=== PATIENT | female | born 1940 | race Caucasian/White ===

== ENCOUNTER 2017-01-15 17:14 | Inpatient (IN) | payer MEDICARE, BC ==
[2017-01-15] MEDS ORDERED: cefTRIAXone 1 GM in Sodium Chloride 0.9% 50 ML IV SCH (22:15)
--- NOTE | 2017-01-15 23:06 | EDM.PDOC ---
ED HPI GENERAL MEDICAL PROBLEM - General Chief Complaint: General Stated Complaint: FELL, FREQUENT URINATION Time Seen by Provider: 01/15/17 18:36 Source of Information: Reports: Patient, Family History Limitations: Reports: Physical impairment (It's difficult to follow this lady's oral history. The duration of her leg swelling is difficult to ascertain) - History of Present Illness INITIAL COMMENTS - FREE TEXT/NARRATIVE: This lady comes to the hospital with some vague symptoms related to possibly a UTI falling and weakness in her left leg. She said for a few days she's had some weakness in the left leg and has fallen because of it. 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 Sometimes her left foot seems numb. Before falling she had an episode of shaking. She doesn't think her blood sugar was low. She checked it and it was 205 prior to arrival. She doesn't think her foot was " asleep" but says it just didn't want to work right. She says it's numb but at the same time she has sensation in it. She said that her left leg has been swelling off and on for a few months. At another time she said the swelling has just come up within the past day or 2. She denies any pain in the left leg. She complains of voiding large amounts frequently. She denies any burning on urination. She denies any flank pain. left leg and foot Pain Score (Numeric/FACES): 0 - Related Data Allergies Allergy/AdvReac Type Severity Reaction Status Date / Time No Known Allergies Allergy Verified 01/15/17 17:45 Home Meds: Home Meds Aspirin 81 mg PO DAILY 08/21/15 [History] Insulin Glarg,Human.Rec.Analog [LantUS Solostar] 32 unit SQ DAILY 08/21/15 [ History] Lisinopril/Hydrochlorothiazide [Zestoretic 20-12.5 mg Tablet] 2 each PO DAILY [History] Metoprolol Succinate [Toprol XL] 200 mg PO DAILY 08/21/15 [History] Simvastatin [Zocor] 40 mg PO BEDTIME 08/21/15 [History] amLODIPine [Norvasc] 10 mg PO DAILY 08/21/15 [History] metFORMIN [Glucophage] 1,000 mg PO BIDMEALS 08/21/15 [History] Past Medical History Cardiovascular History: Reports: High cholesterol, Hypertension Gastrointestinal History: Reports: GERD Musculoskeletal History: Reports: Osteoarthritis, Other (see below) Other Musculoskeletal History: c/o of L leg and hip pain Endocrine/Metabolic History: Reports: Diabetes, type II - Past Surgical History Cardiovascular Surgical History: Reports: None GI Surgical History: Reports: Appendectomy Female Surgical History: Reports: Hysterectomy Musculoskeletal Surgical History: Reports: None Social & Family History - Tobacco Use Smoking Status *Q: Never Smoker Second Hand Smoke Exposure: No - Recreational Drug Use Recreational Drug Use: No ED ROS GENERAL - Review of Systems Review Of Systems: See Below Constitutional: Reports: no symptoms HEENT: Reports: No symptoms Respiratory: Reports: No Symptoms Cardiovascular: Reports: No symptoms Endocrine: Reports: polyuria GI/Abdominal: Reports: No symptoms : Reports: frequency Musculoskeletal: Reports: other (See HPI) Skin: Reports: no symptoms Neurological: Reports: Numbness, Tingling, Weakness Psychiatric: Reports: No symptoms Hematologic/Lymphatic: Reports: no symptoms Immunologic: Reports: no symptoms ED EXAM, GENERAL - Physical Exam Exam: See Below Exam Limited By: Other (The patient speaks in a very weak voice since little bit difficult to understand her) General Appearance: alert, mild distress, obese Eye Exam: bilateral eye: EOMI, PERRL Ears: normal external exam, normal TMs Nose: normal inspection Throat/Mouth: Normal inspection, Normal oropharynx (Well-hydrated) Head: atraumatic Neck: normal inspection, supple Respiratory/Chest: lungs clear Cardiovascular: regular rate, rhythm, no murmur, other (I was unable to palpate pedal pulses in either ankle probably due to obesity. Her foot is warm and has normal capillary refill.) Peripheral Pulses: 0: posterior tibial (L) (Probably secondary to obesity), posterior tibial (R), dorsalis pedis (L), dorsalis pedis (R), 2+: radial (L), radial (R) GI/Abdominal: soft, non tender Back Exam: normal inspection Extremities: other (There is visible swelling of the left lower extremity. From the knees down it's obvious [id number] it's more subtle. There is no erythema. The leg is nontender and there are no palpable cords.) Neurological: alert, oriented, CN II-XII intact, normal cognition, no motor/ sensory deficits. No: normal gait Psychiatric: normal affect Skin Exam: Warm, Dry Course - Vital Signs Last Recorded V/S: Last Vital Signs Temp 36.3 C 01/15/17 22:24 Pulse 71 01/15/17 22:24 Resp 20 01/15/17 22:24 BP 151/83 H 01/15/17 22:24 Pulse Ox 92 L 01/15/17 22:24 - Orders/Labs/Meds Orders: Active Orders 24 hr Category Date Time Status EKG Documentation Completion [RC] ASDIRECTED Care 01/15/17 18:50 Active Head wo Cont [CT] Stat Exams 01/15/17 20:39 Taken VL Duplex Lwr Ext Veins Ltd Lt [US] Stat Exams 01/15/17 20:39 Ordered cefTRIAXone [Rocephin] 1 gm Med 01/15/17 22:15 Active Sodium Chloride 0.9% [Normal Saline] 50 ml IV Q24H EKG 12 Lead [EK] Urgent Ther 01/15/17 18:50 Ordered Medication Orders Ceftriaxone Sodium 1 gm/ (Sodium Chloride) 50 mls @ 100 mls/hr IV Q24H [facility] Last Admin: 01/15/17 22:26 Dose: 100 mls/hr Labs: Laboratory Tests 01/15/17 01/15/17 01/15/17 Range/Units 19:04 19:04 19:49 WBC 9.1 (4.5-11.0) K/uL RBC 4.81 (3.30-5.50) M/uL Hgb 13.5 (12.0-15.0) g/dL Hct 40.6 (36.0-48.0) % MCV 84 (80-98) fL MCH 28 (27-31) pg MCHC 33 (32-36) % Plt Count 350 (150-400) K/uL Neut % (Auto) 66 (36-66) % Lymph % (Auto) 18 L (24-44) % Marion % (Auto) 13 H (2-6) % Eos % (Auto) 4 (2-4) % Baso % (Auto) 0 (0-1) % Sodium 137 L (140-148) mmol/L Potassium 3.1 L (3.6-5.2) mmol/L Chloride 96 L (100-108) mmol/L Carbon Dioxide 31 (21-32) mmol/L Anion Gap 13.1 (5.0-14.0) mmol/L BUN 13 (7-18) mg/dL Creatinine 0.9 (0.6-1.0) mg/dL Est Cr Clr Drug Dosing 43.37 mL/min Estimated GFR (MDRD) > 60 (>60) Glucose 161 H (74-106) mg/dL Lactic Acid (0.4-2.0) mmol/L Calcium 9.5 (8.5-10.1) mg/dL Total Bilirubin 0.4 (0.2-1.0) mg/dL AST 22 (15-37) U/L ALT 20 (12-78) U/L Alkaline Phosphatase 67 (46-116) U/L Troponin I < 0.017 (0.000-0.056) ng/mL Total Protein 7.7 (6.4-8.2) g/dL Albumin 3.7 (3.4-5.0) g/dL Globulin 4.0 H (2.3-3.5) g/dL Albumin/Globulin Ratio 0.9 L (1.2-2.2) Urine Color Yellow Urine Appearance Cloudy Urine pH 8.0 (4.5-8.0) Ur Specific Brewster 1.015 (1.008-1.030) Urine Protein Negative (NEGATIVE) mg/dL Urine Glucose (UA) Normal (NEGATIVE) mg/dL Urine Ketones Negative (NEGATIVE) mg/dL Urine Occult Blood Negative (NEGATIVE) Urine Nitrite Negative (NEGATIVE) Urine Bilirubin Negative (NEGATIVE) Urine Urobilinogen Normal (NORMAL) mg/dL Ur Leukocyte Esterase Large (NEGATIVE) Urine RBC Not seen (0-5) Urine WBC 50-75 H (0-5) Ur Epithelial Cells Few Amorphous Sediment Not seen Urine Bacteria Moderate Urine Mucus Not seen 01/15/17 Range/Units 21:37 WBC (4.5-11.0) K/uL RBC (3.30-5.50) M/uL Hgb (12.0-15.0) g/dL Hct (36.0-48.0) % MCV (80-98) fL MCH (27-31) pg MCHC (32-36) % Plt Count (150-400) K/uL Neut % (Auto) (36-66) % Lymph % (Auto) (24-44) % Marion % (Auto) (2-6) % Eos % (Auto) (2-4) % Baso % (Auto) (0-1) % Sodium (140-148) mmol/L Potassium (3.6-5.2) mmol/L Chloride (100-108) mmol/L Carbon Dioxide (21-32) mmol/L Anion Gap (5.0-14.0) mmol/L BUN (7-18) mg/dL Creatinine (0.6-1.0) mg/dL Est Cr Clr Drug Dosing mL/min Estimated GFR (MDRD) (>60) Glucose (74-106) mg/dL Lactic Acid 2.0 (0.4-2.0) mmol/L Calcium (8.5-10.1) mg/dL Total Bilirubin (0.2-1.0) mg/dL AST (15-37) U/L ALT (12-78) U/L Alkaline Phosphatase (46-116) U/L Troponin I (0.000-0.056) ng/mL Total Protein (6.4-8.2) g/dL Albumin (3.4-5.0) g/dL Globulin (2.3-3.5) g/dL Albumin/Globulin Ratio (1.2-2.2) Urine Color Urine Appearance Urine pH (4.5-8.0) Ur Specific Brewster (1.008-1.030) Urine Protein (NEGATIVE) mg/dL Urine Glucose (UA) (NEGATIVE) mg/dL Urine Ketones (NEGATIVE) mg/dL Urine Occult Blood (NEGATIVE) Urine Nitrite (NEGATIVE) Urine Bilirubin (NEGATIVE) Urine Urobilinogen (NORMAL) mg/dL Ur Leukocyte Esterase (NEGATIVE) Urine RBC (0-5) Urine WBC (0-5) Ur Epithelial Cells Amorphous Sediment Urine Bacteria Urine Mucus Meds: Medications Generic Name Dose Route Start Last Admin Trade Name Freq PRN Reason Stop Dose Admin Ceftriaxone Sodium 1 gm/ 50 mls @ 100 mls/hr 01/15/17 22:15 01/15/17 22:26 Sodium Chloride IV 100 mls/hr Q24H PRASANNA Administration - Re-Assessments/Exams Free Text/Narrative Re-Assessment/Exam: 01/15/17 23:11 The nurses help this lady get up to go to the bathroom. They said that she seemed very weak and was unable to bear weight with the left leg. . 01/15/17 23:[address] showed no acute intracranial abnormalities. At this point there is no obvious etiology for the lower leg weakness. She does appear to have a urinary tract infection. Her weakness necessitates hospitalization. I spoke with Katrina Bryson of the hospitalist service and she has accepted the admission Departure - Departure Time of Disposition: 23:13 Disposition: Admitted As Inpatient 68 Clinical Impression: Weakness of left leg - My Orders Last 24 Hours: My Active Orders 01/15/17 18:50 EKG Documentation Completion [RC] ASDIRECTED EKG 12 Lead [EK] Urgent 01/15/17 20:39 Head wo Cont [CT] Stat VL Duplex Lwr Ext Veins Ltd Lt [US] Stat - Assessment/Plan Last 24 Hours: My Active Orders 01/15/17 18:50 EKG Documentation Completion [RC] ASDIRECTED EKG 12 Lead [EK] Urgent 01/15/17 20:39 Head wo Cont [CT] Stat VL Duplex Lwr Ext Veins Ltd Lt [US] Stat
[2017-01-15] MEDS ORDERED: Albuterol 0.083% 2.5 MG/3 ML Neb Soln NEB PRN (23:08)
[2017-01-15] MEDS ORDERED: Sodium Chloride 0.9% 10 ML Syringe FLUSH PRN (23:08)
[2017-01-15] MEDS ORDERED: LORazepam 2 MG/ML MDV IV PRN (23:08)
[2017-01-15] MEDS ORDERED: Ibuprofen 600 MG Tab PO PRN (23:08)
[2017-01-15] MEDS ORDERED: Ondansetron 4 MG Tab.DIS PO PRN (23:08)
[2017-01-15] MEDS ORDERED: oxyCODONE 5 MG Tab PO PRN (23:08)
[2017-01-15] MEDS ORDERED: Ondansetron 4 MG/2 ML SDV IV PRN (23:08)
[2017-01-15] MEDS ORDERED: Temazepam 15 MG Cap PO PRN (23:08)
[2017-01-15] MEDS ORDERED: Bisacodyl 5 MG Tab PO PRN (23:08)
[2017-01-15] MEDS ORDERED: Morphine 2 MG/ML Syringe IVPUSH PRN (23:08)
[2017-01-15] MEDS: Albuterol/Ipratropium 3.0-0.5 MG/3 ML Neb Soln NEB SCH (23:44)
[2017-01-16] MEDS: Docusate Sodium 100 MG Cap PO PRN (00:01)
[2017-01-16] MEDS: Albuterol/Ipratropium 3.0-0.5 MG/3 ML Neb Soln NEB SCH ×4 (07:19→20:07)
--- NOTE | 2017-01-16 07:32 | PCM.HP ---
H&P History of Present Illness - General Date of Service: 01/15/17 Admit Problem/Dx: Admission Diagnosis/Problem Admission Diagnosis/Problem Acute urinary tract infection Source of Information: Patient, Family ( and Daughter) History Limitations: Reports: No limitations - History of Present Illness Initial Comments - Free Text/Narative: tions: Reports: Physical impairment (It's difficult to follow this lady's oral history. The duration of her leg swelling is difficult to ascertain) - History of Present Illness INITIAL COMMENTS - FREE TEXT/NARRATIVE: This lady comes to the hospital with some vague symptoms related to possibly a UTI falling and weakness in her left leg. She said for a few days she's had some weakness in the left leg and has fallen because of it. It seems like sometimes she can't slate picker her left foot. Sometimes her left foot seems numb. Before falling she had an episode of shaking. She doesn't think her blood sugar was low. She checked it and it was 205 prior to arrival. She doesn't think her foot was " asleep" but says it just didn't want to work right. She says it's numb but at the same time she has sensation in it. She said that her left leg has been swelling off and on for a few months. At another time she said the swelling has just come up within the past day or 2. She denies any pain in the left leg. She complains of voiding large amounts frequently. She denies any burning on urination. She denies any flank pain. left leg and foot. The nurses help this lady get up to go to the bathroom. They said that she seemed very weak and was unable to bear weight with the left leg. . 01/15/17 23:[address] showed no acute intracranial abnormalities. At this point there is no obvious etiology for the lower leg weakness. She does appear to have a urinary tract infection. Her weakness necessitates hospitalization. I spoke with Katrina Bryson of the hospitalist service and she has accepted the admission. Onset of Symptoms: Reports: gradual Duration of Symptoms: Reports: Day(s): (two), Chronic (leg symptoms for >one month) Location: Reports: generalized Improves with: Reports: None Worsens with: Reports: None Context: Reports: other (fall x 2 at home today) Associated Symptoms: Reports: weakness left leg and foot Pain Score (Numeric/FACES): 0 - Related Data Allergies/Adverse Reactions: Allergies Allergy/AdvReac Type Severity Reaction Status Date / Time Gold Allergy Rash Uncoded 01/16/17 02:17 Home Medications: Home Meds Aspirin 81 mg PO DAILY 08/21/15 [History] Insulin Glarg,Human.Rec.Analog [LantUS Solostar] 32 unit SQ DAILY 08/21/15 [ History] Lisinopril/Hydrochlorothiazide [Zestoretic 20-12.5 mg Tablet] 2 each PO DAILY [History] Metoprolol Succinate [Toprol XL] 200 mg PO DAILY 08/21/15 [History] Simvastatin [Zocor] 40 mg PO BEDTIME 08/21/15 [History] amLODIPine [Norvasc] 10 mg PO DAILY 08/21/15 [History] metFORMIN [Glucophage] 1,000 mg PO BIDMEALS 08/21/15 [History] Past Medical History HEENT History: Reports: Impaired vision, Other (see below) Other HEENT History: had a repaired hole in the eardrum by Dr. Gordon in the last year Cardiovascular History: Reports: High cholesterol, Hypertension Gastrointestinal History: Reports: GERD Musculoskeletal History: Reports: Osteoarthritis, Other (see below) Other Musculoskeletal History: c/o of L leg and hip pain Endocrine/Metabolic History: Reports: Diabetes, type II - Past Surgical History Cardiovascular Surgical History: Reports: None GI Surgical History: Reports: Appendectomy Female Surgical History: Reports: Hysterectomy Musculoskeletal Surgical History: Reports: None Social & Family History - Family History Family Medical History: Noncontributory - Tobacco Use Smoking Status *Q: Never Smoker Second Hand Smoke Exposure: No - Recreational Drug Use Recreational Drug Use: No - Living Situation & Occupation Living situation: Reports: Occupation: other (lives with of 56 years in [place], [place]. They have 3 children.) H&P Review of Systems - Review of Systems: Review Of Systems: See Below General: Reports: weakness, fatigue HEENT: Reports: no symptoms Pulmonary: Reports: No Symptoms Cardiovascular: Reports: no symptoms Gastrointestinal: Reports: No symptoms Genitourinary: Reports: dysuria, frequency, burning, urgency, incontinence Musculoskeletal: Reports: leg pain (left leg), muscle pain (left leg) Skin: Reports: no symptoms Psychiatric: Reports: no symptoms Neurological: Reports: No Symptoms Hematologic/Lymphatic: Reports: no symptoms Immunologic: Reports: no symptoms Exam - Exam Exam: See Below - Vital Signs Vital Signs: Last Vital Signs Temp 37.4 C 01/16/17 03:00 Pulse 60 01/16/17 07:21 Resp 14 01/16/17 03:00 BP 138/75 01/16/17 03:00 Pulse Ox 96 01/16/17 07:21 Weight: 80.286 kg - Exam General: alert, oriented, cooperative HEENT: PERRLA, Conjunctiva clear, Hearing intact, Mucosa moist & pink, Nares patent, Normal nasal septum, Posterior pharynx clear, Pupils equal, Pupils reactive Neck: supple, trachea midline, 2 Lungs: Clear to auscultation, Normal respiratory effort Cardiovascular: regular rate, regular rhythm Abdomen: normal bowel sounds, soft (Female) Exam: Deferred Rectal (Female) Exam: Deferred Back Exam: normal inspection, full range of motion, NT Extremities: 3, normal inspection, 10 Skin: warm, dry, intact Neurological: cranial nerves intact, other (left hand and legs with mild weakness ) Neuro Extensive - Mental Status: alert, oriented x3, normal mood/affect, normal cognition Neuro Extensive - Motor, Sensory, Reflexes: motor/sensory deficits Psychiatric: alert, normal affect, normal mood - Patient Data Lab Results last 24 hrs: Laboratory Results - last 24 hr 01/16/17 01/16/17 Range/Units 05:42 05:42 WBC 9.4 (4.5-11.0) K/uL RBC 4.58 (3.30-5.50) M/uL Hgb 13.0 (12.0-15.0) g/dL Hct 39.0 (36.0-48.0) % MCV 85 (80-98) fL MCH 28 (27-31) pg MCHC 33 (32-36) % Plt Count 319 (150-400) K/uL Neut % (Auto) 70 H (36-66) % Lymph % (Auto) 15 L (24-44) % [place] % (Auto) 11 H (2-6) % Eos % (Auto) 4 (2-4) % Baso % (Auto) 0 (0-1) % Sodium 139 L (140-148) mmol/L Potassium 3.0 L (3.6-5.2) mmol/L Chloride 99 L (100-108) mmol/L Carbon Dioxide 30 (21-32) mmol/L Anion Gap 13.0 (5.0-14.0) mmol/L BUN 12 (7-18) mg/dL Creatinine 0.9 (0.6-1.0) mg/dL Est Cr Clr Drug Dosing 43.37 mL/min Estimated GFR (MDRD) > 60 (>60) Glucose 145 H (74-106) mg/dL Calcium 8.9 (8.5-10.1) mg/dL Result Diagrams: 01/16/17 05:42 01/16/17 05:42 *Q Meaningful Use (ADM) - VTE *Q VTE Criteria *Q: - Stroke *Q Stroke Criteria *Q: - AMI *Q AMI Criteria *Q: - Problem List (1) Weakness SNOMED Code(s): 09239496 ICD Code: R53.1 - WEAKNESS Status: Acute Priority: High Current Visit: Yes (2) Urinary tract infection SNOMED Code(s): 56832773 ICD Code: N39.0 - URINARY TRACT INFECTION, SITE NOT SPECIFIED Status: Acute Priority: High Current Visit: Yes Qualifiers: Urinary tract infection type: site unspecified Hematuria presence: without hematuria Qualified Code(s): N39.0 - Urinary tract infection, site not specified (3) Diabetes mellitus type 2, insulin dependent SNOMED Code(s): 057813978 ICD Code: E11.9 - TYPE 2 DIABETES MELLITUS WITHOUT COMPLICATIONS; 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 Status: Acute Priority: High Current Visit: Yes Problem List Initiated/Reviewed/Updated: Yes Orders Last 24hrs: Active Orders 24 hr Category Date Time Status Patient Status [ADT] Routine ADT 01/15/17 23:08 Active Diabetes Education [RC] Click to Edit Care 01/15/17 23:08 Active Intake and Output [RC] QSHIFT Care 01/15/17 23:08 Active Notify Provider [RC] PRN Care 01/15/17 23:08 Active Oxygen Therapy [RC] PRN Care 01/15/17 23:08 Active RT Aerosol Therapy [RC] ASDIRECTED Care 01/15/17 23:08 Active Up With Assistance [RC] ASDIRECTED Care 01/15/17 23:08 Active Vital Signs [RC] Q4H Care 01/15/17 23:08 Active Consult to Physical Therapy [PT Evaluation and Cons 01/16/17 03:16 Active Treatment] [CONS] Routine OT Evaluation and Treatment [CONS] Routine Cons 01/15/17 23:08 Active PT Evaluation and Treatment [CONS] Routine Cons 01/15/17 23:08 Active Regular Diet [DIET] Diet 01/15/17 Breakfast Active GLUCOSE POC LAB TO COLLECT [POC] QIDACANDBED Lab 01/16/17 07:30 Ordered GLUCOSE POC LAB TO COLLECT [POC] QIDACANDBED Lab 01/16/17 11:30 Ordered GLUCOSE POC LAB TO COLLECT [POC] QIDACANDBED Lab 01/16/17 16:30 Ordered GLUCOSE POC LAB TO COLLECT [POC] QIDACANDBED Lab 01/16/17 21:00 Ordered Acetaminophen [Tylenol] Med 01/15/17 23:08 Active 650 mg PO Q4H PRN Albuterol [Proventil Neb Soln] Med 01/15/17 23:08 Active 2.5 mg NEB Q4H PRN Albuterol/Ipratropium [DuoNeb 3.0-0.5 MG/3 ML] Med 01/15/17 23:08 Active 3 ml NEB QIDRT Aspirin Med 01/16/17 09:00 Active 81 mg PO DAILY Bisacodyl [Dulcolax] Med 01/15/17 23:08 Active 5 mg PO DAILY PRN Docusate Sodium [Colace] Med 01/15/17 23:08 Active 100 mg PO BID PRN Hydrochlorothiazide Med 01/16/17 09:00 Active 25 mg PO DAILY Ibuprofen [Motrin] Med 01/15/17 23:08 Active 600 mg PO Q6H PRN Insulin Aspart [NovoLOG] Med 01/15/17 23:08 Active See Protocol SUBCUT ASDIRECTED Insulin Detemir [Levemir] Med 01/16/17 09:00 Active 32 unit SUBCUT DAILY LORazepam [Ativan] Med 01/15/17 23:08 Active 1 mg IV Q6H PRN Lisinopril [Prinivil] Med 01/16/17 09:00 Active 40 mg PO DAILY Metoprolol Succinate [Toprol XL] Med 01/16/17 09:00 Active 200 mg PO DAILY Morphine Med 01/15/17 23:08 Active 2 mg IVPUSH Q2H PRN Ondansetron [Zofran ODT] Med 01/15/17 23:08 Active 4 mg PO Q6H PRN Ondansetron [Zofran] Med 01/15/17 23:08 Active 4 mg IV Q4H PRN Pantoprazole [ProTONIX] Med 01/16/17 09:00 Active 40 mg PO DAILY Simvastatin [Zocor] Med 01/16/17 21:00 Active 40 mg PO BEDTIME Sodium Chloride 0.9% [Saline Flush] Med 01/15/17 23:08 Active 10 ml FLUSH ASDIRECTED PRN Temazepam [Restoril] Med 01/15/17 23:08 Active 15 mg PO BEDTIME PRN amLODIPine [Norvasc] Med 01/16/17 09:00 Active 10 mg PO DAILY metFORMIN [Glucophage] Med 01/16/17 08:00 Active 1,000 mg PO BIDMEALS oxyCODONE Med 01/15/17 23:08 Active 5 mg PO Q4H PRN Saline Lock Insert [OM.PC] Routine Oth 01/15/17 23:08 Ordered Sequential Compression Device [OM.PC] Per Unit Routine Oth 01/15/17 23:08 Ordered Resuscitation Status Routine Resus Stat 01/15/17 22:28 Ordered Medication Orders Acetaminophen (Tylenol) 650 mg PO Q4H PRN PRN Reason: Pain (Mild 1-3)/fever Albuterol (Proventil Neb Soln) 2.5 mg NEB Q4H PRN PRN Reason: Shortness Of Breath/wheezing Albuterol/Ipratropium (Duoneb 3.0-0.5 Mg/3 Ml) 3 ml NEB QIDRT PRASANNA Last Admin: 01/16/17 07:19 Dose: 3 ml Admin: 01/15/17 23:44 Dose: Not Given Amlodipine Besylate (Norvasc) 10 mg PO DAILY [facility] Aspirin (Aspirin) 81 mg PO DAILY [facility] Bisacodyl (Dulcolax) 5 mg PO DAILY PRN PRN Reason: Constipation Docusate Sodium (Colace) 100 mg PO BID PRN PRN Reason: Constipation Last Admin: 01/16/17 00:01 Dose: 100 mg Hydrochlorothiazide (Hydrochlorothiazide) 25 mg PO DAILY [facility] Ceftriaxone Sodium 1 gm/ (Sodium Chloride) 50 mls @ 100 mls/hr IV Q24H [facility] Last Admin: 01/15/17 22:26 Dose: 100 mls/hr Ibuprofen (Motrin) 600 mg PO Q6H PRN PRN Reason: Pain/Fever Insulin Aspart (Novolog) 0 unit SUBCUT ASDIRECTED PRASANNA PRN Reason: Protocol Insulin Detemir (Levemir) 32 unit SUBCUT DAILY [facility] Lisinopril (Prinivil) 40 mg PO DAILY [facility] Lorazepam (Ativan) 1 mg IV Q6H PRN PRN Reason: Nausea/Vomiting Metformin HCl (Glucophage) 1,000 mg PO BIDMEALS [facility] Metoprolol Succinate (Toprol Xl) 200 mg PO DAILY [facility] Morphine Sulfate (Morphine) 2 mg IVPUSH Q2H PRN PRN Reason: Pain (severe 7-10) Ondansetron HCl (Zofran Odt) 4 mg PO Q6H PRN PRN Reason: Nausea able to take PO Ondansetron HCl (Zofran) 4 mg IV Q4H PRN PRN Reason: Nausea/Vomiting Oxycodone HCl (Oxycodone) 5 mg PO Q4H PRN PRN Reason: Pain (moderate 4-6) Pantoprazole Sodium (Protonix) 40 mg PO DAILY [facility] Simvastatin (Zocor) 40 mg PO BEDTIME [facility] Sodium Chloride (Saline Flush) 10 ml FLUSH ASDIRECTED PRN PRN Reason: Keep Vein Open Temazepam (Restoril) 15 mg PO BEDTIME PRN PRN Reason: Sleep Assessment/Plan Comment:: ASSESSMENT AND PLAN: History of Present Illness INITIAL COMMENTS - FREE TEXT/NARRATIVE: This lady comes to the hospital with some vague symptoms related to possibly a UTI falling and weakness in her left leg. She said for a few days she's had some weakness in the left leg and has fallen because of it. It seems like sometimes she can't slate picker her left foot. Sometimes her left foot seems numb. Before falling she had an episode of shaking. She doesn't think her blood sugar was low. She checked it and it was 205 prior to arrival. She doesn't think her foot was " asleep" but says it just didn't want to work right. She says it's numb but at the same time she has sensation in it. She said that her left leg has been swelling off and on for a few months. At another time she said the swelling has just come up within the past day or 2. She denies any pain in the left leg. She complains of voiding large amounts frequently. She denies any burning on urination. She denies any flank pain. The nurses help this lady get up to go to the bathroom. They said that she seemed very weak and was unable to bear weight with the left leg. A head CT showed no acute intracranial abnormalities. At this point there is no obvious etiology for the lower leg weakness. She does appear to have a urinary tract infection. Her weakness necessitates hospitalization. I spoke with Katrina Bryson of the hospitalist service and she has accepted the admission URINARY TRACT INFECTION -Admit to [address] [place] [address] for further monitoring -Telemetry -Advise to notify nurses of any chest pain or other symptoms -And a.m. labs: CBC, BMP -Rocephin 1 gram IV Weakness -referral to Physical Therapy for assessment -referral to Occupational Therapy for assessment and discharge planning. -monitor left leg and left arm for any changes. Diabetes type 2 -levemir insulin 32 units subcut daily -insulin Novolog as directed low dose sliding scale coverage -glucose check before meals and at bedtime Maintenance issues -Orders home meds: -Nutrition: Regular diet -Larson catheter not indicated at this time -DVT: scd -GI ; Protonix po 40mg daily CODE STATUS: Full Admission status: Admit to [address] [place] [address] Admission justification. This patient will be admitted for inpatient services and is medically appropriate meeting medical necessity for inpatient admission as outlined in my documentation. I reasonably expect the patient will require inpatient services that span. Time over 2 midnights. I reasonably expect this patient to be discharged or transferred within 96 hours after admission to the critical access hospital. Disposition; home with Primary care provider: Dr. Tavarez
[2017-01-16] MEDS: Insulin Aspart 100 Units/ML 3 ML Pen SUBCUT SCH ×4 (07:58→22:13)
[2017-01-16] MEDS: Sodium Chloride 0.9% 1,000 ML IV SCH ×2 (07:59→18:15)
--- NOTE | 2017-01-16 08:00 | PCM.SN ---
- Free Text/Narrative Note: CHART REVIEW am labs; potassium 3.0, sodium 139, chloride 99 a; hypokalemia p; start IV fluids, Normal Saline at 100ml/hr, Potassium IV 20meq, add Mag++ to am labs continue with close monitoring.
[2017-01-16] MEDS: amLODIPine 10 MG Tab PO SCH (08:05)
[2017-01-16] MEDS: metFORMIN 500 MG Tab PO SCH ×2 (08:06→16:45)
[2017-01-16] MEDS: Pantoprazole 40 MG Tab.CR PO SCH (08:07)
[2017-01-16] MEDS: Lisinopril 20 MG Tab PO SCH (08:07)
[2017-01-16] MEDS: Hydrochlorothiazide 25 MG Tab PO SCH (08:07)
[2017-01-16] MEDS: Insulin Detemir 100 Units/ML 3 ML Pen SUBCUT SCH (08:09)
[2017-01-16] MEDS: Metoprolol Succinate 50 MG Tab.ER PO SCH (08:12)
[2017-01-16] MEDS ORDERED: Aspirin 81 MG Tab.Chew PO SCH (09:00)
[2017-01-16] MEDS ORDERED: Potassium Chloride 20 MEQ, Lidocaine 1% 2 ML in Sodium Chloride 0.9% 100 ML IV ONE (09:00)
[2017-01-16] MEDS ORDERED: Insulin Detemir 100 Units/ML 3 ML Pen SUBCUT SCH (09:00)
--- NOTE | 2017-01-16 14:32 | PCM.PN ---
- General Info Date of Service: 01/16/17 Functional Status: Reports: pain controlled, tolerating diet, urinating - Review of Systems General: Reports: Weakness. Denies: Fever, Chills Pulmonary: Reports: no symptoms Cardiovascular: Reports: No Symptoms Gastrointestinal: Reports: No symptoms Neurological: Reports: Weakness (Left leg). Denies: Confusion, Dizziness, Headache, Trouble Speaking, Change in Speech Systems Review Comment:: This patient is a 76-year-old woman who was admitted through the emergency department because of left leg weakness and urinary tract infection. For 2 days prior to admission she experienced left leg weakness, this came on fairly abruptly and was fairly severe. Weakness to the extent that she is unable to stand or walk. She denies any other focal weakness or other focal neurologic deficits. On evaluation emergency room Department CT scan of the head without contrast was interpreted as unremarkable other than significant atrophy. Urinalysis shows evidence of urinary tract infection and she has been started on antibiotic therapy. - Patient Data Vitals - most recent: Last Vital Signs Temp 99.7 F 01/16/17 12:06 Pulse 73 01/16/17 12:06 Resp 16 01/16/17 12:06 BP 148/62 H 01/16/17 12:06 Pulse Ox 93 L 01/16/17 12:06 Weight - most recent: 177 lb I&O - last 24 hours: Intake & Output 01/15/17 01/16/17 01/16/17 22:59 06:59 14:59 Intake Total 100 940 Output Total 375 50 Balance -275 890 Lab Results last 24 hrs: Laboratory Results - last 24 hr 01/16/17 01/16/17 01/16/17 Range/Units 05:42 05:42 07:43 WBC 9.4 (4.5-11.0) K/uL RBC 4.58 (3.30-5.50) M/uL Hgb 13.0 (12.0-15.0) g/dL Hct 39.0 (36.0-48.0) % MCV 85 (80-98) fL MCH 28 (27-31) pg MCHC 33 (32-36) % Plt Count 319 (150-400) K/uL Neut % (Auto) 70 H (36-66) % Lymph % (Auto) 15 L (24-44) % [place] % (Auto) 11 H (2-6) % Eos % (Auto) 4 (2-4) % Baso % (Auto) 0 (0-1) % Sodium 139 L (140-148) mmol/L Potassium 3.0 L (3.6-5.2) mmol/L Chloride 99 L (100-108) mmol/L Carbon Dioxide 30 (21-32) mmol/L Anion Gap 13.0 (5.0-14.0) mmol/L BUN 12 (7-18) mg/dL Creatinine 0.9 (0.6-1.0) mg/dL Est Cr Clr Drug Dosing 43.37 mL/min Estimated GFR (MDRD) > 60 (>60) Glucose 145 H (74-106) mg/dL Calcium 8.9 (8.5-10.1) mg/dL Magnesium 1.3 L (1.8-2.4) mg/dL Med Orders - Current: Current Medications Acetaminophen (Tylenol) 650 mg PO Q4H PRN PRN Reason: Pain (Mild 1-3)/fever Albuterol (Proventil Neb Soln) 2.5 mg NEB Q4H PRN PRN Reason: Shortness Of Breath/wheezing Albuterol/Ipratropium (Duoneb 3.0-0.5 Mg/3 Ml) 3 ml NEB QIDRT [facility] Last Admin: 01/16/17 10:34 Dose: 3 ml Amlodipine Besylate (Norvasc) 10 mg PO DAILY [facility] Last Admin: 01/16/17 08:05 Dose: 10 mg Bisacodyl (Dulcolax) 5 mg PO DAILY PRN PRN Reason: Constipation Dipyridamole/Aspirin (Aggrenox 200-25 Mg) 1 cap PO BID [facility] Docusate Sodium (Colace) 100 mg PO BID PRN PRN Reason: Constipation Last Admin: 01/16/17 00:01 Dose: 100 mg Hydrochlorothiazide (Hydrochlorothiazide) 25 mg PO DAILY [facility] Last Admin: 01/16/17 08:07 Dose: 25 mg Ceftriaxone Sodium 1 gm/ (Sodium Chloride) 50 mls @ 100 mls/hr IV Q24H [facility] Sodium Chloride (Normal Saline) 1,000 mls @ 100 mls/hr IV ASDIRECTED [facility] Last Admin: 01/16/17 07:59 Dose: 100 mls/hr Ibuprofen (Motrin) 600 mg PO Q6H PRN PRN Reason: Pain/Fever Insulin Aspart (Novolog) 0 unit SUBCUT ASDIRECTED [facility] PRN Reason: Protocol Last Admin: 01/16/17 11:39 Dose: 3 unit Insulin Detemir (Levemir) 32 unit SUBCUT DAILY [facility] Last Admin: 01/16/17 08:09 Dose: 32 unit Lisinopril (Prinivil) 40 mg PO DAILY [facility] Last Admin: 01/16/17 08:07 Dose: 40 mg Lorazepam (Ativan) 1 mg IV Q6H PRN PRN Reason: Nausea/Vomiting Metformin HCl (Glucophage) 1,000 mg PO BIDMEALS [facility] Last Admin: 01/16/17 08:06 Dose: 1,000 mg Metoprolol Succinate (Toprol Xl) 200 mg PO DAILY [facility] Last Admin: 01/16/17 08:12 Dose: 200 mg Morphine Sulfate (Morphine) 2 mg IVPUSH Q2H PRN PRN Reason: Pain (severe 7-10) Ondansetron HCl (Zofran Odt) 4 mg PO Q6H PRN PRN Reason: Nausea able to take PO Ondansetron HCl (Zofran) 4 mg IV Q4H PRN PRN Reason: Nausea/Vomiting Oxycodone HCl (Oxycodone) 5 mg PO Q4H PRN PRN Reason: Pain (moderate 4-6) Pantoprazole Sodium (Protonix) 40 mg PO DAILY@0730 [facility] Last Admin: 01/16/17 08:07 Dose: 40 mg Potassium Chloride (Klor-Con M20) 40 meq PO ONETIME ONE Stop: 01/16/17 14:46 Potassium Chloride (Klor-Con M20) 40 meq PO ONETIME ONE Stop: 01/16/17 20:01 Simvastatin (Zocor) 40 mg PO BEDTIME [facility] Sodium Chloride (Saline Flush) 10 ml FLUSH ASDIRECTED PRN PRN Reason: Keep Vein Open Temazepam (Restoril) 15 mg PO BEDTIME PRN PRN Reason: Sleep Discontinued Medications Aspirin (Aspirin) 81 mg PO DAILY [facility] Last Admin: 01/16/17 08:06 Dose: 81 mg Ceftriaxone Sodium 1 gm/ (Sodium Chloride) 50 mls @ 100 mls/hr IV Q24H [facility] Last Admin: 01/15/17 22:26 Dose: 100 mls/hr Potassium Chloride 20 meq/Lidocaine HCl 2 ml/ Sodium Chloride 112 mls @ 56 mls/ hr IV ONETIME ONE Stop: 01/16/17 10:59 Last Admin: 01/16/17 09:09 Dose: 56 mls/hr - Exam Quality Assessment: DVT prophylaxis General: alert, oriented, cooperative, no acute distress Lungs: Clear to auscultation, Normal respiratory effort Cardiovascular: Regular Rate, Regular Rhythm, No Murmurs Abdomen: bowel sounds present, soft, no tenderness, no distension Back Exam: normal inspection, full range of motion Extremities: no edema Skin: warm, dry, intact Neurological: other (Left leg weakness) - Problem List Review Problem List Initiated/Reviewed/Updated: Yes - My Orders Last 24 Hours: My Active Orders 01/16/17 14:17 Potassium Chloride [Klor-Con M20] 40 meq PO ONETIME ONE 01/16/17 14:30 Aspirin/Dipyridamole [Aggrenox 200-25 MG] 1 cap PO BID Magnesium Oxide 400 mg PO BID Magnesium Sulfate/Water [Magnesium Sulfate 2 GM in Water 50 ML] 2 gm Premix Bag 1 bag IV Q6H 01/16/17 19:17 Potassium Chloride [Klor-Con M20] 40 meq PO ONETIME ONE 01/17/17 05:00 BASIC METABOLIC PANEL,BMP [CHEM] Timed CBC WITH AUTO DIFF [HEME] Timed MAGNESIUM [CHEM] Timed 01/17/17 08:00 Ang Head w Cont [MR] Urgent Ang Neck w Cont [MR] Urgent Brain w wo Cont [MR] Urgent Echo Comp wo Cont [US] Urgent - Plan Plan:: ASSESSMENT AND PLAN LEFT LEG WEAKNESS-abrupt onset 2 days prior to admission, significant weakness in that she is unable to walk or stand. She denies any significant back pain or radicular features. No previous history of similar symptoms, likely represents subacute CVA. -Aggrenox twice daily -MRI of the brain with and without contrast in a.m. -MRA of the neck and brain in the a.m. -Echocardiogram to evaluate for cardiac source of emboli -Physical therapy and occupational therapy consults URINARY TRACT INFECTION -Rocephin 1 gram IV -Urine culture pending Diabetes type 2 -levemir insulin 32 units subcut daily -insulin Novolog as directed low dose sliding scale coverage -glucose check before meals and at bedtime Maintenance issues -Orders home meds: -Nutrition: Regular diet -Larson catheter not indicated at this time -DVT: Lovenox 40 mg subcutaneous daily -GI ; Protonix po 40mg daily CODE STATUS: Full Admission status: Admit to [address] [place] [address] Admission justification. This patient will be admitted for inpatient services and is medically appropriate meeting medical necessity for inpatient admission as outlined in my documentation. I reasonably expect the patient will require inpatient services that span. Time over 2 midnights. I reasonably expect this patient to be discharged or transferred within 96 hours after [facility] the [facility]. Disposition; patient currently able to stand or walk, will need to consider acute rehabilitation admission versus senior care placement for restorative physical therapy and occupational therapy Primary care provider: Dr. Tavarez
[2017-01-16] MEDS ORDERED: Potassium Chloride 20 MEQ Tab.ER PO ONE ×2 (14:45→20:00)
[2017-01-16] MEDS: Magnesium Sulfate/Water 2 GM in Premix Bag 1 BAG IV SCH ×2 (15:39→20:07)
[2017-01-16] MEDS: Aspirin/Dipyridamole 200-25 MG Cap.ER PO SCH ×2 (15:40→20:08)
[2017-01-16] MEDS: Magnesium Oxide 400 MG Tab PO SCH ×2 (15:40→20:08)
[2017-01-16] MEDS: Enoxaparin 40 MG/0.4 ML Syringe SUBCUT SCH (15:41)
[2017-01-16] MEDS: cefTRIAXone 1 GM in Sodium Chloride 0.9% 50 ML IV SCH (20:07)
[2017-01-16] MEDS ORDERED: Simvastatin 20 MG Tab PO SCH (21:00)
[2017-01-17] MEDS: Sodium Chloride 0.9% 1,000 ML IV SCH (04:51)
[2017-01-17] MEDS: Albuterol/Ipratropium 3.0-0.5 MG/3 ML Neb Soln NEB SCH ×4 (07:14→21:12)
[2017-01-17] MEDS: Pantoprazole 40 MG Tab.CR PO SCH (08:57)
[2017-01-17] MEDS: Insulin Aspart 100 Units/ML 3 ML Pen SUBCUT SCH ×4 (08:58→21:16)
[2017-01-17] MEDS: Insulin Detemir 100 Units/ML 3 ML Pen SUBCUT SCH (08:58)
--- NOTE | 2017-01-17 09:30 | US ---
VL Duplex Lwr Ext Veins Ltd Lt FINDINGS: Duplex imaging was performed from the left common femoral through the popliteal veins. The veins demonstrate complete compressibility without evidence of intraluminal thrombus. There is norm al phasic variation of the waveforms with respiration. There is augmented flow with calf compression . IMPRESSION: There is no evidence for left lower extremity deep venous thrombosis.
[2017-01-17] MEDS: Metoprolol Succinate 50 MG Tab.ER PO SCH (09:38)
[2017-01-17] MEDS: metFORMIN 500 MG Tab PO SCH ×2 (09:39→17:18)
[2017-01-17] MEDS: Aspirin/Dipyridamole 200-25 MG Cap.ER PO SCH ×2 (09:39→21:13)
[2017-01-17] MEDS: Magnesium Oxide 400 MG Tab PO SCH ×2 (09:39→21:12)
[2017-01-17] MEDS: amLODIPine 10 MG Tab PO SCH (09:40)
[2017-01-17] MEDS: Hydrochlorothiazide 25 MG Tab PO SCH (09:40)
[2017-01-17] MEDS: Lisinopril 20 MG Tab PO SCH (09:41)
[2017-01-17] MEDS ORDERED: Gadoteridol 279.3 MG/ML 20 ML SDV IV SCH (13:00)
--- NOTE | 2017-01-17 14:04 | MR ---
Brain wo Cont HISTORY: No onset left leg weakness. COMPARISON: None TECHNIQUE: The brain was imaged in the axial, sagittal, and coronal planes utilizing T1, gradient ec ho, T2, FLAIR, and diffusion-weighted techniques. FINDINGS: There is a focal area of altered effusion involving the medial aspect of the high right pa rietal lobe. The finding is consistent with an area of acute/subacute ischemia. No additional areas of ischemia are demonstrated. There is no hemorrhage. There is no significant mass effect. There are age-related involutional changes. There is central and cortical cerebral volume loss. Ther e are scattered white matter lesions most consistent with chronic ischemic microvascular change. Impression: 1. Recent stroke involving the medial high right parietal lobe. No hemorrhage or other complication. 2. Age-related involutional changes.
--- NOTE | 2017-01-17 14:06 | MR ---
Ang Head wo Cont HISTORY: Left-sided weakness. COMPARISON: None TECHNIQUE: 3D [id number] source and MIP images were obtained of the intracranial vasculature. FINDINGS: The intracranial internal carotid arteries are widely patent. There is no plaque or stenos is. The anterior, middle, and posterior cerebral arteries are also patent. There is a normal symmetr ic pattern of branching. The vertebral and basilar arteries are normal in appearance. There are no f indings of aneurysm or vascular malformation. IMPRESSION: Negative cerebral MRA.
--- NOTE | 2017-01-17 14:09 | MR ---
Ang Neck w wo Cont HISTORY: Left leg weakness. COMPARISON: None TECHNIQUE: 2D as well as [id number] 3D [id number] was utilized to obtain source as w ell as MIP images of the extracranial carotid arteries. FINDINGS RIGHT CAROTID ARTERY: The right common carotid artery is widely patent. There is no significant plaq ue demonstrated. The internal and external carotid arteries also appear widely patent. There are no focal areas of stenosis. The vertebral artery is patent. LEFT CAROTID ARTERY: The left common carotid artery is widely patent. There is severe plaque involvi ng the left proximal ICA. There is a severe stenosis which appears greater than 90%. The ECA is hoyt nt. The vertebral artery is visualized. Impression: 1. High-grade stenosis proximal left ICA. The finding could be correlated with ultrasound to assess for velocity separation. 2. There is no significant stenosis on the right.
--- NOTE | 2017-01-17 15:17 | PCM.PN ---
- General Info Date of Service: 01/17/17 Functional Status: Reports: pain controlled, tolerating diet. Denies: ambulating - Review of Systems General: Reports: Weakness Gastrointestinal: Denies: Abdominal pain Neurological: Reports: Weakness (left leg ) Systems Review Comment:: No acute events overnight. Left leg especially the distal muscles remain weak. She's not able to bear any weight on her left leg. She can limp around a little bit with her walker. She has not had any fevers. Urine culture is pending. MRI today showed a right parietal CVA which appears to be acute or subacute. Is relatively small in nature. MRA of the neck suggested significant stenosis of the left carotid artery. - Patient Data Vitals - most recent: Last Vital Signs Temp 37.1 C 01/17/17 11:23 Pulse 71 01/17/17 11:23 Resp 16 01/17/17 11:23 BP 150/69 H 01/17/17 11:23 Pulse Ox 96 01/17/17 11:23 Weight - most recent: 80.286 kg I&O - last 24 hours: Intake & Output 01/17/17 01/17/17 01/17/17 06:59 14:59 22:59 Intake Total 1813 720 Output Total 850 600 300 Balance 963 120 -300 Lab Results last 24 hrs: Laboratory Results - last 24 hr 01/17/17 01/17/17 Range/Units 05:51 05:51 WBC 8.8 (4.5-11.0) K/uL RBC 4.25 (3.30-5.50) M/uL Hgb 12.0 (12.0-15.0) g/dL Hct 36.8 (36.0-48.0) % MCV 87 (80-98) fL MCH 28 (27-31) pg MCHC 33 (32-36) % Plt Count 271 (150-400) K/uL Neut % (Auto) 72 H (36-66) % Lymph % (Auto) 13 L (24-44) % Gray % (Auto) 10 H (2-6) % Eos % (Auto) 5 H (2-4) % Baso % (Auto) 0 (0-1) % Sodium 136 L (140-148) mmol/L Potassium 4.1 (3.6-5.2) mmol/L Chloride 102 (100-108) mmol/L Carbon Dioxide 27 (21-32) mmol/L Anion Gap 11.1 (5.0-14.0) mmol/L BUN 10 (7-18) mg/dL Creatinine 0.8 (0.6-1.0) mg/dL Est Cr Clr Drug Dosing 48.80 mL/min Estimated GFR (MDRD) > 60 (>60) Glucose 148 H (74-106) mg/dL Calcium 8.1 L (8.5-10.1) mg/dL Magnesium 1.9 D (1.8-2.4) mg/dL Med Orders - Current: Current Medications Acetaminophen (Tylenol) 650 mg PO Q4H PRN PRN Reason: Pain (Mild 1-3)/fever Albuterol (Proventil Neb Soln) 2.5 mg NEB Q4H PRN PRN Reason: Shortness Of Breath/wheezing Albuterol/Ipratropium (Duoneb 3.0-0.5 Mg/3 Ml) 3 ml NEB QIDRT [facility] Last Admin: 01/17/17 15:15 Dose: 3 ml Amlodipine Besylate (Norvasc) 10 mg PO DAILY [facility] Last Admin: 01/17/17 09:40 Dose: 10 mg Bisacodyl (Dulcolax) 5 mg PO DAILY PRN PRN Reason: Constipation Dipyridamole/Aspirin (Aggrenox 200-25 Mg) 1 cap PO BID [facility] Last Admin: 01/17/17 09:39 Dose: 1 cap Docusate Sodium (Colace) 100 mg PO BID PRN PRN Reason: Constipation Last Admin: 01/16/17 00:01 Dose: 100 mg Enoxaparin Sodium (Lovenox) 40 mg SUBCUT Q24H [facility] Last Admin: 01/16/17 15:41 Dose: 40 mg Hydrochlorothiazide (Hydrochlorothiazide) 25 mg PO DAILY [facility] Last Admin: 01/17/17 09:40 Dose: 25 mg Ceftriaxone Sodium 1 gm/ (Sodium Chloride) 50 mls @ 100 mls/hr IV Q24H [facility] Last Admin: 01/16/17 20:07 Dose: 100 mls/hr Insulin Aspart (Novolog) 0 unit SUBCUT ASDIRECTED [facility] PRN Reason: Protocol Last Admin: 01/17/17 13:33 Dose: 2 unit Insulin Detemir (Levemir) 32 unit SUBCUT DAILY [facility] Last Admin: 01/17/17 08:58 Dose: 32 unit Lisinopril (Prinivil) 40 mg PO DAILY [facility] Last Admin: 01/17/17 09:41 Dose: 40 mg Lorazepam (Ativan) 1 mg IV Q6H PRN PRN Reason: Nausea/Vomiting Magnesium Oxide (Magnesium Oxide) 400 mg PO BID [facility] Last Admin: 01/17/17 09:39 Dose: 400 mg Metformin HCl (Glucophage) 1,000 mg PO BIDMEALS [facility] Last Admin: 01/17/17 09:39 Dose: 1,000 mg Metoprolol Succinate (Toprol Xl) 200 mg PO DAILY [facility] Last Admin: 01/17/17 09:38 Dose: 200 mg Morphine Sulfate (Morphine) 2 mg IVPUSH Q2H PRN PRN Reason: Pain (severe 7-10) Ondansetron HCl (Zofran Odt) 4 mg PO Q6H PRN PRN Reason: Nausea able to take PO Ondansetron HCl (Zofran) 4 mg IV Q4H PRN PRN Reason: Nausea/Vomiting Oxycodone HCl (Oxycodone) 5 mg PO Q4H PRN PRN Reason: Pain (moderate 4-6) Pantoprazole Sodium (Protonix) 40 mg PO DAILY@0730 [facility] Last Admin: 01/17/17 08:57 Dose: 40 mg Sodium Chloride (Saline Flush) 10 ml FLUSH ASDIRECTED PRN PRN Reason: Keep Vein Open Temazepam (Restoril) 15 mg PO BEDTIME PRN PRN Reason: Sleep Discontinued Medications Aspirin (Aspirin) 81 mg PO DAILY [facility] Last Admin: 01/16/17 08:06 Dose: 81 mg Gadoteridol (Prohance) 20 ml IV . DIRECTED [facility] Stop: 01/17/17 13:01 Last Admin: 01/17/17 13:06 Dose: 20 ml Ceftriaxone Sodium 1 gm/ (Sodium Chloride) 50 mls @ 100 mls/hr IV Q24H [facility] Last Admin: 01/15/17 22:26 Dose: 100 mls/hr Potassium Chloride 20 meq/Lidocaine HCl 2 ml/ Sodium Chloride 112 mls @ 56 mls/ hr IV ONETIME ONE Stop: 01/16/17 10:59 Last Admin: 01/16/17 09:09 Dose: 56 mls/hr Sodium Chloride (Normal Saline) 1,000 mls @ 100 mls/hr IV ASDIRECTED [facility] Last Admin: 01/17/17 04:51 Dose: 100 mls/hr Magnesium Sulfate 2 gm/ Premix 50 mls @ 25 mls/hr IV Q6H [facility] Stop: 01/16/17 22:59 Last Admin: 01/16/17 20:07 Dose: 25 mls/hr Ibuprofen (Motrin) 600 mg PO Q6H PRN PRN Reason: Pain/Fever Potassium Chloride (Klor-Con M20) 40 meq PO ONETIME ONE Stop: 01/16/17 14:46 Last Admin: 01/16/17 15:39 Dose: 40 meq Potassium Chloride (Klor-Con M20) 40 meq PO ONETIME ONE Stop: 01/16/17 20:01 Last Admin: 01/16/17 20:07 Dose: 40 meq Simvastatin (Zocor) 40 mg PO BEDTIME [facility] Last Admin: 01/16/17 20:08 Dose: 40 mg - Exam General: alert, oriented, cooperative, no acute distress Neck: supple Lungs: Normal respiratory effort Cardiovascular: Regular Rate, Regular Rhythm Abdomen: soft, no distension Extremities: no edema, no cyanosis Skin: warm, dry Neurological: no new focal deficit, normal speech. No: strength equal bilateral (mild weakness left plantar flexion, moderate/severe weakness Left dorsiflexion. mild weakness flexion left knee) Psy/Mental Status: alert, normal affect - Problem List & Annotations (1) Cerebrovascular accident SNOMED Code(s): 435356999 Code(s): I63.9 - CEREBRAL INFARCTION, UNSPECIFIED Status: Acute Current Visit: Yes Qualifiers: CVA mechanism: unspecified Qualified Code(s): I63.9 - Cerebral infarction, unspecified - Problem List Review Problem List Initiated/Reviewed/Updated: Yes - My Orders Last 24 Hours: My Active Orders 01/17/17 15:11 Convert IV to Saline Lock [OM.PC] Routine 01/17/17 15:13 Carotid Comp [US] Routine 01/17/17 21:00 atorvaSTATin [Lipitor] 40 mg PO BEDTIME - Plan Plan:: ASSESSMENT AND PLAN RIGHT CEREBROVASCULAR ACCIDENT WITH LEFT LEG WEAKNESS - abrupt onset 2 days prior to admission, significant weakness that has not improved much since admission. MRI today showed right parietal cerebrovascular accident. Tolerating aspirin/dipyridamole so far. -Aspirin/dipyridamole twice daily -Change statin to 8 atorvastatin with increased dosing -Mild permissive hypertension -Continue medical management for diabetes -Followup echo -Physical therapy and occupational therapy consults ACUTE CYSTITIS - culture is pending at this time. -Ceftriaxone 1 gram IV -Followup urine culture Diabetes mellitus type 2 - sugars well-controlled so far. -levemir insulin 32 units subcut daily -insulin Novolog as directed low dose sliding scale coverage -glucose check before meals and at bedtime Maintenance issues -Nutrition: Regular diabetic diet -Larson catheter not indicated at this time -DVT: Enoxaparin 40 mg subcutaneous daily -GI ; Protonix po 40mg daily Disposition - patient currently not able to stand or walk, will need to consider acute rehabilitation admission versus longterm placement for restorative physical therapy and occupational therapy Omi Saenz M.D.
[2017-01-17] MEDS: Enoxaparin 40 MG/0.4 ML Syringe SUBCUT SCH (15:25)
[2017-01-17] MEDS: Acetaminophen 325 MG Tab PO PRN (19:32)
[2017-01-17] MEDS: Docusate Sodium 100 MG Cap PO PRN (21:11)
[2017-01-17] MEDS: atorvaSTATin 20 MG Tab PO SCH (21:12)
[2017-01-17] MEDS: cefTRIAXone 1 GM in Sodium Chloride 0.9% 50 ML IV SCH (21:12)
[2017-01-18] MEDS: Acetaminophen 325 MG Tab PO PRN (04:15)
[2017-01-18] MEDS: Pantoprazole 40 MG Tab.CR PO SCH (07:17)
[2017-01-18] MEDS: Albuterol/Ipratropium 3.0-0.5 MG/3 ML Neb Soln NEB SCH ×4 (07:26→21:00)
[2017-01-18] MEDS: metFORMIN 500 MG Tab PO SCH ×2 (08:49→16:36)
[2017-01-18] MEDS: Metoprolol Succinate 50 MG Tab.ER PO SCH (08:50)
[2017-01-18] MEDS: amLODIPine 10 MG Tab PO SCH (08:50)
[2017-01-18] MEDS: Hydrochlorothiazide 25 MG Tab PO SCH (08:51)
[2017-01-18] MEDS: Lisinopril 20 MG Tab PO SCH (08:51)
[2017-01-18] MEDS: Aspirin/Dipyridamole 200-25 MG Cap.ER PO SCH ×2 (08:52→21:04)
[2017-01-18] MEDS: Magnesium Oxide 400 MG Tab PO SCH ×2 (08:52→21:04)
[2017-01-18] MEDS: Insulin Aspart 100 Units/ML 3 ML Pen SUBCUT SCH ×4 (08:53→21:02)
[2017-01-18] MEDS: Insulin Detemir 100 Units/ML 3 ML Pen SUBCUT SCH (09:02)
--- NOTE | 2017-01-18 09:27 | US ---
Carotid artery ultrasound History: Follow-up left carotid stenosis seen on recent MRA. There is moderate plaque in the distal left CCA carotid bulb. The plaque extends into the proximal I CA. There is a increased velocity within the proximal ICA which measures 162 cm/s. The peak end-whyte tolic velocity measures 36 cm/s. The ICA/CCA ratio is elevated equal to 2.2. The ECA is patent. Ther e is antegrade flow within the vertebral artery. There is mild plaque within the right carotid bulb. There is a normal peak systolic velocity measuri ng 105 cm/s. The ICA/CCA ratio is 1.4. Impression: 1. Stenosis of the proximal left ICA in the range of 50-69%. The appearance on MRI over estimates th e degree of stenosis.
--- NOTE | 2017-01-18 12:38 | CR ---
Left foot There is moderate bunion formation at the first MTP joint. There is degenerative joint space loss. T here are no posttraumatic findings. There are hypertrophic degenerative findings involving the dorsa l aspect of the midfoot. There is a prominent calcaneal spur. There is evidence of dorsal soft tissu e swelling of the mid foot. Impression: 1. Bunion formation with degenerative changes at the first MTP joint. 2. Moderate degenerative findings involving the dorsal midfoot.
[2017-01-18] MEDS: Enoxaparin 40 MG/0.4 ML Syringe SUBCUT SCH (16:35)
--- NOTE | 2017-01-18 17:13 | PCM.PN ---
- General Info Date of Service: 01/18/17 Functional Status: Reports: pain controlled, tolerating diet, ambulating - Review of Systems General: Reports: Weakness Pulmonary: Denies: shortness of breath Systems Review Comment:: No acute events overnight. She does have some left foot pain. She also has some swelling over the forefoot on her left foot. No obvious injury yesterday, she is wondering if she may have hurt her foot while she was trying to catch her balance when she had her fall prior to presentation. She does have some mild anterior swelling of the left knee but this is much better today. She is able to bear a little bit of weight on her left foot today. Leg seems to be moving better. - Patient Data Vitals - most recent: Last Vital Signs Temp 37.6 C 01/18/17 15:05 Pulse 80 01/18/17 15:05 Resp 20 01/18/17 15:05 BP 140/56 L 01/18/17 15:05 Pulse Ox 94 L 01/18/17 15:05 Weight - most recent: 80.286 kg I&O - last 24 hours: Intake & Output 01/18/17 01/18/17 01/18/17 06:59 14:59 22:59 Intake Total 960 Output Total 1100 800 300 Balance -1100 160 -300 Adolfo Results last 24 hrs: Microbiology 01/16/17 16:03 Urine Culture - Preliminary Urine, Clean Catch MIXED POSITIVE ORLIN DAY 1 Med Orders - Current: Current Medications Acetaminophen (Tylenol) 650 mg PO Q4H PRN PRN Reason: Pain (Mild 1-3)/fever Last Admin: 01/18/17 04:15 Dose: 650 mg Albuterol (Proventil Neb Soln) 2.5 mg NEB Q4H PRN PRN Reason: Shortness Of Breath/wheezing Albuterol/Ipratropium (Duoneb 3.0-0.5 Mg/3 Ml) 3 ml NEB QIDRT [facility] Last Admin: 01/18/17 14:48 Dose: 3 ml Amlodipine Besylate (Norvasc) 10 mg PO DAILY [facility] Last Admin: 01/18/17 08:50 Dose: 10 mg Atorvastatin Calcium (Lipitor) 40 mg PO BEDTIME [facility] Last Admin: 01/17/17 21:12 Dose: 40 mg Bisacodyl (Dulcolax) 5 mg PO DAILY PRN PRN Reason: Constipation Dipyridamole/Aspirin (Aggrenox 200-25 Mg) 1 cap PO BID [facility] Last Admin: 01/18/17 08:52 Dose: 1 cap Docusate Sodium (Colace) 100 mg PO BID PRN PRN Reason: Constipation Last Admin: 01/17/17 21:11 Dose: 100 mg Enoxaparin Sodium (Lovenox) 40 mg SUBCUT Q24H [facility] Last Admin: 01/18/17 16:35 Dose: 40 mg Hydrochlorothiazide (Hydrochlorothiazide) 25 mg PO DAILY [facility] Last Admin: 01/18/17 08:51 Dose: 25 mg Insulin Aspart (Novolog) 0 unit SUBCUT ASDIRECTED [facility] PRN Reason: Protocol Last Admin: 01/18/17 16:37 Dose: 1 unit Insulin Detemir (Levemir) 32 unit SUBCUT DAILY [facility] Last Admin: 01/18/17 09:02 Dose: 32 unit Lisinopril (Prinivil) 40 mg PO DAILY [facility] Last Admin: 01/18/17 08:51 Dose: 40 mg Lorazepam (Ativan) 1 mg IV Q6H PRN PRN Reason: Nausea/Vomiting Magnesium Oxide (Magnesium Oxide) 400 mg PO BID [facility] Last Admin: 01/18/17 08:52 Dose: 400 mg Metformin HCl (Glucophage) 1,000 mg PO BIDMEALS [facility] Last Admin: 01/18/17 16:36 Dose: 1,000 mg Metoprolol Succinate (Toprol Xl) 200 mg PO DAILY [facility] Last Admin: 01/18/17 08:50 Dose: 200 mg Morphine Sulfate (Morphine) 2 mg IVPUSH Q2H PRN PRN Reason: Pain (severe 7-10) Ondansetron HCl (Zofran Odt) 4 mg PO Q6H PRN PRN Reason: Nausea able to take PO Ondansetron HCl (Zofran) 4 mg IV Q4H PRN PRN Reason: Nausea/Vomiting Oxycodone HCl (Oxycodone) 5 mg PO Q4H PRN PRN Reason: Pain (moderate 4-6) Pantoprazole Sodium (Protonix) 40 mg PO DAILY@0730 [facility] Last Admin: 01/18/17 07:17 Dose: 40 mg Sodium Chloride (Saline Flush) 10 ml FLUSH ASDIRECTED PRN PRN Reason: Keep Vein Open Temazepam (Restoril) 15 mg PO BEDTIME PRN PRN Reason: Sleep Last Admin: 01/17/17 21:11 Dose: 15 mg Discontinued Medications Aspirin (Aspirin) 81 mg PO DAILY [facility] Last Admin: 01/16/17 08:06 Dose: 81 mg Gadoteridol (Prohance) 20 ml IV . DIRECTED [facility] Stop: 01/17/17 13:01 Last Admin: 01/17/17 13:06 Dose: 20 ml Ceftriaxone Sodium 1 gm/ (Sodium Chloride) 50 mls @ 100 mls/hr IV Q24H [facility] Last Admin: 01/15/17 22:26 Dose: 100 mls/hr Ceftriaxone Sodium 1 gm/ (Sodium Chloride) 50 mls @ 100 mls/hr IV Q24H [facility] Last Admin: 01/17/17 21:12 Dose: 100 mls/hr Potassium Chloride 20 meq/Lidocaine HCl 2 ml/ Sodium Chloride 112 mls @ 56 mls/ hr IV ONETIME ONE Stop: 01/16/17 10:59 Last Admin: 01/16/17 09:09 Dose: 56 mls/hr Sodium Chloride (Normal Saline) 1,000 mls @ 100 mls/hr IV ASDIRECTED [facility] Last Admin: 01/17/17 04:51 Dose: 100 mls/hr Magnesium Sulfate 2 gm/ Premix 50 mls @ 25 mls/hr IV Q6H [facility] Stop: 01/16/17 22:59 Last Admin: 01/16/17 20:07 Dose: 25 mls/hr Ibuprofen (Motrin) 600 mg PO Q6H PRN PRN Reason: Pain/Fever Potassium Chloride (Klor-Con M20) 40 meq PO ONETIME ONE Stop: 01/16/17 14:46 Last Admin: 01/16/17 15:39 Dose: 40 meq Potassium Chloride (Klor-Con M20) 40 meq PO ONETIME ONE Stop: 01/16/17 20:01 Last Admin: 01/16/17 20:07 Dose: 40 meq Simvastatin (Zocor) 40 mg PO BEDTIME [facility] Last Admin: 01/16/17 20:08 Dose: 40 mg - Exam Quality Assessment: No: supplemental oxygen, urine catheter General: alert, oriented, no acute distress Neck: supple Lungs: Clear to auscultation, Normal respiratory effort Cardiovascular: Regular Rate, Regular Rhythm Abdomen: soft, no distension Extremities: no edema, no cyanosis, no calf tenderness, other (Mild swelling of her left knee in the prepatellar area. Mild warmth but no fluctuance. Mild swelling over the dorsum of the left foot with some tenderness in this area but no obvious deformity.) Peripheral Pulses: 2+: dorsalis pedis (L), dorsalis pedis (R) Skin: warm, dry Psy/Mental Status: alert, normal affect - Problem List & Annotations (1) Cerebrovascular accident SNOMED Code(s): 747743368 Code(s): I63.9 - CEREBRAL INFARCTION, UNSPECIFIED Status: Acute Current Visit: Yes Qualifiers: CVA mechanism: unspecified Qualified Code(s): I63.9 - Cerebral infarction, unspecified - Problem List Review Problem List Initiated/Reviewed/Updated: Yes - My Orders Last 24 Hours: My Active Orders 01/17/17 21:00 atorvaSTATin [Lipitor] 40 mg PO BEDTIME 01/18/17 10:47 Cooling Warming Measures [RC] ASDIRECTED Ice Bag [Ice Therapy] [OM.PC] Routine 01/18/17 11:59 OT Evaluation and Treatment [CONS] Routine - Plan Plan:: ASSESSMENT AND PLAN RIGHT CEREBROVASCULAR ACCIDENT WITH LEFT LEG WEAKNESS - abrupt onset 2 days prior to admission, significant weakness that is now starting to improve. MRI showed right parietal cerebrovascular accident. Tolerating aspirin/ dipyridamole so far. Making some progress with physical therapy. Echocardiogram was normal. -Aspirin/dipyridamole twice daily -Change statin to 8 atorvastatin with increased dosing -Mild permissive hypertension -Continue medical management for diabetes -Physical therapy and occupational therapy consults ACUTE CYSTITIS - culture showed mixed orlin. -Discontinue antibiotics Left foot pain - x-rays this morning did not show any evidence for fracture. There is some swelling over the dorsum of the right foot as well as tenderness in this area. Sprain is suspected. -Ice packs Left knee swelling - very mild prepatellar swelling, suspect musculoskeletal injury at the time of her fall. There is no pain so fracture is extremely unlikely. DVT extremely unlikely given. Localized swelling. -Ice packs Diabetes mellitus type 2 - sugars well-controlled so far. -levemir insulin 32 units subcut daily -insulin Novolog as directed low dose sliding scale coverage -glucose check before meals and at bedtime Maintenance issues -Nutrition: Regular diabetic diet -Larson catheter not indicated at this time -DVT: Enoxaparin 40 mg subcutaneous daily -GI ; Protonix po 40mg daily Disposition - patient currently not able to stand or walk, will need to consider acute rehabilitation admission versus penitentiary placement for restorative physical therapy and occupational therapy Omi Saenz M.D.
[2017-01-18] MEDS: atorvaSTATin 20 MG Tab PO SCH (21:01)
[2017-01-19] MEDS: Acetaminophen 325 MG Tab PO PRN (01:32)
[2017-01-19] MEDS: Albuterol/Ipratropium 3.0-0.5 MG/3 ML Neb Soln NEB SCH ×2 (07:13→10:53)
[2017-01-19] MEDS: Pantoprazole 40 MG Tab.CR PO SCH (07:31)
[2017-01-19] MEDS: metFORMIN 500 MG Tab PO SCH (08:02)
[2017-01-19] MEDS: Aspirin/Dipyridamole 200-25 MG Cap.ER PO SCH (08:02)
[2017-01-19] MEDS: Hydrochlorothiazide 25 MG Tab PO SCH (08:02)
[2017-01-19] MEDS: amLODIPine 10 MG Tab PO SCH (08:03)
[2017-01-19] MEDS: Lisinopril 20 MG Tab PO SCH (08:03)
[2017-01-19] MEDS: Magnesium Oxide 400 MG Tab PO SCH (08:03)
[2017-01-19] MEDS: Metoprolol Succinate 50 MG Tab.ER PO SCH (08:04)
[2017-01-19] MEDS: Insulin Detemir 100 Units/ML 3 ML Pen SUBCUT SCH (08:07)
[2017-01-19] MEDS: Insulin Aspart 100 Units/ML 3 ML Pen SUBCUT SCH ×2 (08:08→11:43)
[2017-01-19] MEDS ORDERED: Insulin Detemir 100 Units/ML 3 ML Pen SUBCUT ONE (08:30)
--- NOTE | 2017-01-19 10:47 | PCM.DCSUM1 ---
Discharge Summary - Hospital Course Brief History: 76 -year-old female with history of diabetes mellitus, high blood pressure and hypercholesterolemia who presented with left leg weakness, possible urinary tract infection and was admitted for observation and further management. - Discharge Data Discharge Date: 01/19/17 Discharge Disposition: DC/Tfer to SNF 03 Condition: Fair - Discharge Diagnosis/Problem(s) (1) Cerebrovascular accident SNOMED Code(s): 992737373 ICD Code: I63.9 - CEREBRAL INFARCTION, UNSPECIFIED Status: Acute Current Visit: Yes Problem Details: small right parietal infarct Qualifiers: CVA mechanism: unspecified Qualified Code(s): I63.9 - Cerebral infarction, unspecified - Patient Summary/Data Consults: Consultations 01/15/17 23:08 OT Evaluation and Treatment [CONS] Routine Please Evaluate and Treat. OT Reason for Consult: Discharge Planning Special Instructions: left leg weakness This query below is only for informational purposes and is not editable. PT Evaluation and Treatment [CONS] Routine Please Evaluate and Treat. PT Reason for Consult: Strengthening Special Instructions: left leg weakness This query below is only for informational purposes and is not editable. 01/16/17 03:16 Consult to Physical Therapy [PT Evaluation and Treatment] [CONS] Routine Please Evaluate and Treat. PT Reason for Consult: Other (Type Response) Special Instructions: eval and treat new left leg weakness. This query below is only for informational purposes and is not editable. Admission Diagnosis/Problem: Acute urinary tract infection 01/18/17 11:59 OT Evaluation and Treatment [CONS] Routine Please Evaluate and Treat. OT Reason for Consult: Discharge Planning Pending Discharge: Yes This query below is only for informational purposes and is not editable. Admission Diagnosis/Problem: Acute urinary tract infection Hospital Course: Jeni presented to the emergency room with left leg weakness and a fall. Workup in the emergency room revealed a possible urinary tract infection. Head CT was negative. She was unable to bear any weight on her left leg and was admitted for further workup and management. The morning after admission she continues to have significant difficulty with strength in her left leg. She is unable to bear any weight on the left leg. there was concern for stroke the morning after admission given the significant weakness and her aspirin was replaced with aspirin/dipyridamole. Unfortunately the now she was outside of the window for more aggressive intervention so an MRI was planned for the second day after admission which was Tuesday. An MRI revealed a small right parietal infarction that was acute to subacute. The MRA of the brain did not show any aneurysms or obstructions. MRA of the neck revealed possible significant stenosis of the left common carotid artery but ultrasound suggested only 50-69% stenosis. Once evidence for the stroke was obtained we adjusted the medical management including changing her simvastatin to a higher dose atorvastatin. Her blood pressure has been well-controlled using only his lisinopril and metoprolol. She has been making some improvements with the help of physical therapy but continues to have significant limitations with left foot and lower leg weakness. I believe that she would benefit from acute rehabilitation given the improvements over the past 48 hours and the persisting deficits. This infarction with either embolic or thrombotic. There is no evidence for atrial fibrillation during hospital stay and her echocardiogram was normal. Did not see any aneurysms or other sources of potential emboli. Most likely this was thrombotic in nature. Hopefully the adjustment and antiplatelet medications and cholesterol lowering medications will help to reduce the risk of a second stroke or extension of his original stroke. On the day of discharge the plan is for transfer to [facility] in [place] for acute rehabilitation with physical and occupational therapy. Her diabetes has been fairly well-controlled.We have seen a slight rise in her sugars do to immobility/inactivity. Prior to presentation her diabetes was well-controlled of late her home medication be adequate once her activity increases. She is currently receiving long-acting insulin as well as a sliding scale insulin and metformin. - Patient Instructions Diet: Diabetic Diet Activity: Apply Ice (to right foot and knee QID and PRN), As Tolerated (up with assistance due to left leg weakness) Showering/Bathing: May Shower Notify Provider of: Fever, Increased Pain, Nausea and/or Vomiting Other/Special Instructions: 1. You were in the hospital for management of a right parietal cerebrovascular accident. This was diagnosed using an MRI. This was an ischemic stroke though I cannot say for sure if this was caused by an embolism or thrombosis at this time. We have started a new medication called aspirin/dipyridamole (Aggrenox). this medication will help to reduce your risk of having a second stroke. I have also changed your cholesterol medication to atorvastatin for a more powerful lipid lowering effect. 2. You still have some weakness in her left leg and I recommend acute rehabilitation with physical and occupational therapy at [facility] in [place]. 3. Please continue your home insulin dosing and for the short-term he would benefit from a sliding-scale insulin as below. You should have your blood sugars checked 4 times a day with meals and also at bedtime. -Sliding scale insulin with meals and at bedtime. If blood sugar is: <150 - no insulin. 150-199 - 1 unit. 200- 249 - 2 units. 250-299 - 3 units. 300-349 - 4 units. 350-399 - 5 units. 4. Code status - full code. 5. Please seek medical attention if you develop fever greater than 101, have worsening of your weakness in the left leg or develop additional symptoms concerning for stroke such as arm weakness, facial droop or difficulty speaking. - Discharge Plan Prescriptions/Med Rec: Acetaminophen [Tylenol] 650 mg PO Q4H PRN #100 tablet PRN Reason: Pain/Fever Aspirin/Dipyridamole [Aggrenox 200-25 MG] 1 cap PO BID #60 cap.er Insulin Aspart [NovoLOG] 1 unit SUBCUT ASDIRECTED #1 pen atorvaSTATin [Lipitor] 40 mg PO BEDTIME #30 tablet Home Medications: Home Meds Insulin Glarg,Human.Rec.Analog [Lantus Solostar] 32 unit SQ DAILY 08/21/15 [ History] Lisinopril/Hydrochlorothiazide [Zestoretic 20-12.5 mg Tablet] 2 each PO DAILY [History] Metoprolol Succinate [Toprol XL] 200 mg PO DAILY 08/21/15 [History] amLODIPine [Norvasc] 10 mg PO DAILY 08/21/15 [History] metFORMIN [Glucophage] 1,000 mg PO BIDMEALS 08/21/15 [History] Acetaminophen [Tylenol] 650 mg PO Q4H PRN #100 tablet 01/19/17 [Rx] Aspirin/Dipyridamole [Aggrenox 200-25 MG] 1 cap PO BID #60 cap.er 01/19/17 [Rx] Insulin Aspart [NovoLOG] 1 unit SUBCUT ASDIRECTED #1 pen 01/19/17 [Rx] atorvaSTATin [Lipitor] 40 mg PO BEDTIME #30 tablet 01/19/17 [Rx] Patient Handouts: Atorvastatin tablets, Ischemic Stroke Treated Without Warfarin Referrals: Tulio Tavarez MD [Primary Care Provider] - (f/u with Dr Tavarez after acute rehab) - Discharge Summary/Plan Comment DC Time >30 min.: Yes (45) - Patient Data Vitals - Most Recent: Last Vital Signs Temp 36.8 C 01/19/17 07:03 Pulse 71 01/19/17 08:04 Resp 16 01/19/17 07:03 BP 147/75 H 01/19/17 08:04 Pulse Ox 94 L 01/19/17 07:03 Weight - Most Recent: 80.286 kg I&O - Last 24 hours: Intake & Output 01/18/17 01/19/17 01/19/17 22:59 06:59 14:59 Intake Total 520 600 Output Total 300 450 600 Balance 220 -450 0 FABIAN Results - Last 24 hrs: Microbiology 01/16/17 16:03 Urine Culture - Final Urine, Clean Catch MIXED POSITIVE ROSALIA DAY 2 Med Orders - Current: Current Medications Acetaminophen (Tylenol) 650 mg PO Q4H PRN PRN Reason: Pain (Mild 1-3)/fever Last Admin: 01/19/17 01:32 Dose: 650 mg Albuterol (Proventil Neb Soln) 2.5 mg NEB Q4H PRN PRN Reason: Shortness Of Breath/wheezing Albuterol/Ipratropium (Duoneb 3.0-0.5 Mg/3 Ml) 3 ml NEB QIDRT [facility] Last Admin: 01/19/17 07:13 Dose: 3 ml Amlodipine Besylate (Norvasc) 10 mg PO DAILY [facility] Last Admin: 01/19/17 08:03 Dose: 10 mg Atorvastatin Calcium (Lipitor) 40 mg PO BEDTIME [facility] Last Admin: 01/18/17 21:01 Dose: 40 mg Bisacodyl (Dulcolax) 5 mg PO DAILY PRN PRN Reason: Constipation Last Admin: 01/18/17 21:07 Dose: 5 mg Dipyridamole/Aspirin (Aggrenox 200-25 Mg) 1 cap PO BID [facility] Last Admin: 01/19/17 08:02 Dose: 1 cap Docusate Sodium (Colace) 100 mg PO BID PRN PRN Reason: Constipation Last Admin: 01/17/17 21:11 Dose: 100 mg Enoxaparin Sodium (Lovenox) 40 mg SUBCUT Q24H [facility] Last Admin: 01/18/17 16:35 Dose: 40 mg Hydrochlorothiazide (Hydrochlorothiazide) 25 mg PO DAILY [facility] Last Admin: 01/19/17 08:02 Dose: 25 mg Insulin Aspart (Novolog) 0 unit SUBCUT ASDIRECTED [facility] PRN Reason: Protocol Last Admin: 01/19/17 08:08 Dose: 1 unit Insulin Detemir (Levemir) 40 unit SUBCUT DAILY [facility] Lisinopril (Prinivil) 40 mg PO DAILY [facility] Last Admin: 01/19/17 08:03 Dose: 40 mg Lorazepam (Ativan) 1 mg IV Q6H PRN PRN Reason: Nausea/Vomiting Magnesium Oxide (Magnesium Oxide) 400 mg PO BID [facility] Last Admin: 01/19/17 08:03 Dose: 400 mg Metformin HCl (Glucophage) 1,000 mg PO BIDMEALS [facility] Last Admin: 01/19/17 08:02 Dose: 1,000 mg Metoprolol Succinate (Toprol Xl) 200 mg PO DAILY [facility] Last Admin: 01/19/17 08:04 Dose: 200 mg Morphine Sulfate (Morphine) 2 mg IVPUSH Q2H PRN PRN Reason: Pain (severe 7-10) Ondansetron HCl (Zofran Odt) 4 mg PO Q6H PRN PRN Reason: Nausea able to take PO Ondansetron HCl (Zofran) 4 mg IV Q4H PRN PRN Reason: Nausea/Vomiting Oxycodone HCl (Oxycodone) 5 mg PO Q4H PRN PRN Reason: Pain (moderate 4-6) Pantoprazole Sodium (Protonix) 40 mg PO DAILY@0730 [facility] Last Admin: 01/19/17 07:31 Dose: 40 mg Sodium Chloride (Saline Flush) 10 ml FLUSH ASDIRECTED PRN PRN Reason: Keep Vein Open Temazepam (Restoril) 15 mg PO BEDTIME PRN PRN Reason: Sleep Last Admin: 01/17/17 21:11 Dose: 15 mg Discontinued Medications Aspirin (Aspirin) 81 mg PO DAILY [facility] Last Admin: 01/16/17 08:06 Dose: 81 mg Gadoteridol (Prohance) 20 ml IV . DIRECTED [facility] Stop: 01/17/17 13:01 Last Admin: 01/17/17 13:06 Dose: 20 ml Ceftriaxone Sodium 1 gm/ (Sodium Chloride) 50 mls @ 100 mls/hr IV Q24H [facility] Last Admin: 01/15/17 22:26 Dose: 100 mls/hr Ceftriaxone Sodium 1 gm/ (Sodium Chloride) 50 mls @ 100 mls/hr IV Q24H [facility] Last Admin: 01/17/17 21:12 Dose: 100 mls/hr Potassium Chloride 20 meq/Lidocaine HCl 2 ml/ Sodium Chloride 112 mls @ 56 mls/ hr IV ONETIME ONE Stop: 01/16/17 10:59 Last Admin: 01/16/17 09:09 Dose: 56 mls/hr Sodium Chloride (Normal Saline) 1,000 mls @ 100 mls/hr IV ASDIRECTED [facility] Last Admin: 01/17/17 04:51 Dose: 100 mls/hr Magnesium Sulfate 2 gm/ Premix 50 mls @ 25 mls/hr IV Q6H [facility] Stop: 01/16/17 22:59 Last Admin: 01/16/17 20:07 Dose: 25 mls/hr Ibuprofen (Motrin) 600 mg PO Q6H PRN PRN Reason: Pain/Fever Insulin Detemir (Levemir) 32 unit SUBCUT DAILY [facility] Last Admin: 01/19/17 08:07 Dose: 32 units Insulin Detemir (Levemir) 8 unit SUBCUT ONETIME ONE Stop: 01/19/17 08:31 Last Admin: 01/19/17 10:06 Dose: 8 units Potassium Chloride (Klor-Con M20) 40 meq PO ONETIME ONE Stop: 01/16/17 14:46 Last Admin: 01/16/17 15:39 Dose: 40 meq Potassium Chloride (Klor-Con M20) 40 meq PO ONETIME ONE Stop: 01/16/17 20:01 Last Admin: 01/16/17 20:07 Dose: 40 meq Simvastatin (Zocor) 40 mg PO BEDTIME [facility] Last Admin: 01/16/17 20:08 Dose: 40 mg *Q Meaningful Use (DIS) - VTE *Q VTE Criteria *Q: - Stroke *Q Stroke Criteria *Q: - AMI *Q AMI Criteria *Q:
[2017-01-19 11:05] VITALS: BP 131/68
[2017-01-20] MEDS ORDERED: Insulin Detemir 100 Units/ML 3 ML Pen SUBCUT SCH (09:00)
== END 2017-01-19 12:00 | DRG 65 ==
LOC: JP.ED 17:14 → JP.2SS 22:27
PROVIDERS: ADMIT Hospitalist; ATTEND Internal Medicine
DX: I63.9 Cerebral infarction, unspecified (principal); G81.94 Hemiplegia, unspecified affecting left nondominant side; N39.0 Urinary tract infection, site not specified; E87.1 Hypo-osmolality and hyponatremia; I10 Essential (primary) hypertension; E11.9 Type 2 diabetes mellitus without complications; Z79.4 Long term (current) use of insulin; E87.6 Hypokalemia; W18.30XA Fall on same level, unspecified, initial encounter; Y92.009 Unspecified place in unspecified non-institutional (private) residence as the place of occurrence of the external cause; E78.00 Pure hypercholesterolemia, unspecified; M19.90 Unspecified osteoarthritis, unspecified site; H54.7 Unspecified visual loss; I65.22 Occlusion and stenosis of left carotid artery; M79.672 Pain in left foot; M25.462 Effusion, left knee; Z79.82 Long term (current) use of aspirin; Z91.09 Other allergy status, other than to drugs and biological substances
CPT/HCPCS: 36415; 70450; 80053; 81001; 83605; 84484; 85025; 93005; 93010; 93971 ×2; 96374; 99285; J0696; J7050; 70544; 70544-26; 70549; 70549-26; 70551; 70551-26; 73630-26-LT; 73630-LT; 80048; 82962; 83735; 87086; 93306; 93880; 93880-26; 94640-76; 97110-GP; 97116-GP; 97162-GP; 97165-GO; A9270-GY; A9576; J1650; J3475; J3480; J7030; J7040; J7620

== ENCOUNTER 2017-04-26 09:50 | Day surgery (SDC) | payer MEDICARE, BC ==
[2017-04-26] MEDS ORDERED: Hydrochlorothiazide 25 MG Tab PO ONE (10:30)
[2017-04-26] MEDS ORDERED: Metoprolol Succinate 50 MG Tab.ER PO ONE (10:30)
[2017-04-26] MEDS ORDERED: Lisinopril 20 MG Tab PO ONE (10:30)
[2017-04-26] MEDS ORDERED: fentaNYL 100 MCG/2 ML SDV ONE ×2 (10:43→10:44)
[2017-04-26] MEDS ORDERED: Propofol 200 MG/20 ML SDV ONE ×2 (10:43→10:44)
[2017-04-26] MEDS ORDERED: Midazolam 1 MG/ML 2 ML SDV ONE (10:43)
[2017-04-26] MEDS ORDERED: Lidocaine 2% Jelly 10 ML Urojet ONE (10:46)
[2017-04-26] MEDS ORDERED: Hydrogen Peroxide 3% Top Soln 240 ML Bottle ONE (10:46)
[2017-04-26] MEDS ORDERED: Bupivacaine 0.5%/EPINEPHrine 1:200,000 50 ML MDV ONE (10:46)
[2017-04-26] MEDS ORDERED: Dextrose 5%-Lactated Ringers 1,000 ML IV SCH (11:00)
[2017-04-26] MEDS ORDERED: cefOXitin 2 GM in Sodium Chloride 0.9% 50 ML IV ONE (11:30)
[2017-04-26 14:53] VITALS: BP 151/73
--- NOTE | 2017-04-27 15:37 | OR ---
DATE OF PROCEDURE: 04/26/2017 PREOPERATIVE DIAGNOSIS: Prolapsing and partially thrombosed mixed hemorrhoids. POSTOPERATIVE DIAGNOSES: 1. Prolapsing and partially thrombosed mixed hemorrhoids. 2. Additional inflamed internal hemorrhoidal column. OPERATIVE PROCEDURE: 1. Hemorrhoidectomy x2 (79945). 2. Ligation of additional internal hemorrhoid (83399). ANESTHESIA: Local plus IV sedation. INDICATION FOR PROCEDURE: This is a 77-year-old female presenting with some painful prolapsing hemorrhoids. Plan is to proceed with excision of these. I think this can be done in satisfactory with local plus IV sedation approach given the patient's underlying medical status. Potential risks including bleeding, infection, recurrence of the problem over time, problems with the fecal incontinence postoperatively were reviewed, and the patient wishes to proceed. DETAILS OF PROCEDURE: The patient was taken to the operating room and placed in supine position, subsequently converted to lithotomy position. A perianal prep was then performed. There were two columns of prolapsed hemorrhoids, both of which contained some clot within. These areas were then anesthetized with 1% lidocaine mixed with Marcaine and a clamp was placed across the base of the hemorrhoid and the mixed hemorrhoid excised. In each case these were then closed off with a 4-0 Vicryl stitch initial and at the end of the incision to allow internal drainage as needed. The patient had one additional column of the internal hemorrhoid which appeared to be prolapse. This was ligated with a [id number] stitch of 4-0 Vicryl stitch. At that point, no further problems were noted. The area was also anesthetized with 1% lidocaine mixed with Marcaine. The patient was taken to the recovery room in satisfactory condition. There were no evident complications. Mahad Mendoza MD /[id number]
== END 2017-04-26 15:10 | disposition home or self-care (01) ==
LOC: JP.SDS 09:50
PROVIDERS: ATTEND Surgery
DX: K64.8 Other hemorrhoids (principal); I10 Essential (primary) hypertension; K21.9 Gastro-esophageal reflux disease without esophagitis; E11.9 Type 2 diabetes mellitus without complications; Z91.09 Other allergy status, other than to drugs and biological substances; Z90.49 Acquired absence of other specified parts of digestive tract; Z90.710 Acquired absence of both cervix and uterus
CPT/HCPCS: 46260; 82962; 88304; A9270; J0694; J2704; J3010; J7042; J7050; J2250

== ENCOUNTER 2017-07-02 05:29 | Emergency (ER) | payer MEDICARE, BC ==
[2017-07-02 06:00] VITALS: BP 215/91
--- NOTE | 2017-07-02 06:14 | EDM.PDOC ---
ED HPI GENERAL MEDICAL PROBLEM - General Chief Complaint: Neuro Symptoms/Deficits Stated Complaint: STROKE Time Seen by Provider: 07/02/17 05:56 Source of Information: Reports: Family History Limitations: Reports: Altered Mental Status - History of Present Illness INITIAL COMMENTS - FREE TEXT/NARRATIVE: This patient was transported to the ER for possible stroke. Last known to be normal at 3 AM. Her said she was unable to speak this morning and right- sided facial drooping and right side weakness. He said that she had a stroke in the past but couldn't really tell me when it was. He thought she had some bleeding then. She did not have any kind of surgery. Review of her records on the EMR shows that she did have a CVA in December of this year this was an embolic stroke and involve the right parietal lobe. The patient's after a lot of discussion seemed to indicate that she didn't have any weakness. This quite difficult to get a history from her - Related Data Allergies Allergy/AdvReac Type Severity Reaction Status Date / Time Gold Allergy Rash Uncoded 07/02/17 05:54 Home Meds: Home Meds Insulin Glarg,Human.Rec.Analog [Lantus Solostar] 32 unit SQ DAILY 08/21/15 [ History] Lisinopril/Hydrochlorothiazide [Zestoretic 20-12.5 mg Tablet] 2 each PO DAILY [History] Metoprolol Succinate [Toprol XL] 200 mg PO DAILY 08/21/15 [History] amLODIPine [Norvasc] 10 mg PO DAILY 08/21/15 [History] metFORMIN [Glucophage] 1,000 mg PO BIDMEALS 08/21/15 [History] Acetaminophen [Tylenol] 650 mg PO Q4H PRN #100 tablet 01/19/17 [Rx] Aspirin/Dipyridamole [Aggrenox 200-25 MG] 1 cap PO BID #60 cap.er 01/19/17 [Rx] Insulin Aspart [NovoLOG] 1 unit SUBCUT ASDIRECTED #1 pen 01/19/17 [Rx] atorvaSTATin [Lipitor] 40 mg PO BEDTIME #90 tablet 01/19/17 [Rx] Past Medical History HEENT History: Reports: Impaired Vision, Other (See Below) Other HEENT History: had a repaired hole in the eardrum by Dr. Gordon in the last year Cardiovascular History: Reports: High Cholesterol, Hypertension, Other (See Below) Other Cardiovascular History: CVA IN JANUARY 2017 Respiratory History: Reports: None Gastrointestinal History: Reports: GERD, Hemorrhoids Genitourinary History: Reports: None, Urinary Incontinence VP PUBLIC RELATIONS History: Reports: Musculoskeletal History: Reports: Osteoarthritis, Other (See Below) Other Musculoskeletal History: c/o of L leg and hip pain Neurological History: Reports: CVA Psychiatric History: Reports: None Endocrine/Metabolic History: Reports: Diabetes, Type II Immunologic History: Reports: None Oncologic (Cancer) History: Reports: None Dermatologic History: Reports: None - Infectious Disease History Infectious Disease History: Reports: Chicken Pox, Measles, Mumps - Past Surgical History Head Surgeries/Procedures: Reports: None HEENT Surgical History: Reports: None, Other (See Below) Other HEENT Surgeries/Procedures: EARDRUM HAD HOLE AND THEY PATCHED IT Cardiovascular Surgical History: Reports: None GI Surgical History: Reports: Appendectomy Female Surgical History: Reports: Hysterectomy Endocrine Surgical History: Reports: None Neurological Surgical History: Reports: None Musculoskeletal Surgical History: Reports: None Dermatological Surgical History: Reports: None Social & Family History - Family History Family Medical History: Noncontributory - Tobacco Use Smoking Status *Q: Never Smoker Second Hand Smoke Exposure: No - Caffeine Use Caffeine Use: Reports: Coffee, Tea - Recreational Drug Use Recreational Drug Use: No - Living Situation & Occupation Living situation: Reports: Occupation: Other ED ROS GENERAL - Review of Systems Review Of Systems: Unable To Obtain ED EXAM, NEURO - Physical Exam Exam: See Below Exam Limited By: Altered Mental Status General Appearance: No: Other (This woman appears to be having a CVA. She is awake but minimally responsive) Eye Exam: Bilateral Eye: Other (Left pupil about 3 mm reactive right pupil difficult see because the right eye is closed forcefully) Throat/Mouth: Normal Inspection Head Exam: Atraumatic Neck: Normal Inspection Respiratory/Chest: Lungs Clear Cardiovascular: Regular Rate, Rhythm GI/Abdominal: Soft Neurological: Other (This lady has right sided facial grimacing as if there may be some right-sided facial spasm. I see a twitch in the right eyebrow that could indicate a focal motor seizure. It's noted that the left side of the face is normal. The right upper extremity has minimal if any movement when I asked her to squeeze my fingers. Left side is normal initially she does not respond to any commands later she opens her eyes to voice) Skin Exam: Warm, Dry Course - Vital Signs Last Recorded V/S: Last Vital Signs Temp 36.3 C 07/02/17 05:30 Pulse 70 07/02/17 05:30 Resp 20 07/02/17 06:00 BP 215/91 H 07/02/17 06:00 Pulse Ox 99 07/02/17 06:00 - Orders/Labs/Meds Orders: Active Orders 24 hr Category Date Time Status Head wo Cont [CT] Stat Exams 07/02/17 Ordered CBC WITH AUTO DIFF [HEME] Urgent Lab 07/02/17 06:19 Ordered COMPREHENSIVE METABOLIC PN,CMP [CHEM] Urgent Lab 07/02/17 06:19 Ordered INR,PT,PROTHROMBIN TIME [COAG] Urgent Lab 07/02/17 06:20 Ordered PTT,PARTIAL THROMBOPLSTIN TIME [COAG] Urgent Lab 07/02/17 06:20 Ordered - Radiology Interpretation Free Text/Narrative:: Head CT reviewed by me shows a fairly large left-sided subdural hematoma. There seems to be a little bit of midline shift. We are awaiting the official radiology report - Re-Assessments/Exams Free Text/Narrative Re-Assessment/Exam: 07/02/17 06:26 On initial exam this patient appeared to be obviously having a CVA. Calls went out to arrange air ambulance. She was immediately rushed back to CT. I reviewed the images and noted that there was a large left-sided subdural hematoma. [facility] was contacted I initially contacted Dr. Wayne. He had questions about whether the family would actually want her to have surgery. Her could not answer this question and went to have a conference with his daughter. The was under the impression that she had had some bleeding with her last stroke but nobody did any surgery then I explained to the family that it was a fairly large bleed and needed neurosurgical evaluation and possibly surgery and once he understood that this was a very difficult situation from the previous stroke he did say that they would want surgery. I then contacted the neurosurgeon again and he accepted the patient. Nurses have been unable to establish an IV on this patient but EMS is here so we will not delay transport. If they need IV access enoute they can put in an IO. Departure - Departure Time of Disposition: :30 Disposition: DC/Tfer to Acute Hospital 02 Condition: Critical Clinical Impression: Cerebral hemorrhage - Discharge Information Referrals: PCP,None [Primary Care Provider] - Forms: ED Department Discharge - My Orders Last 24 Hours: My Active Orders 07/02/17 Head wo Cont [CT] Stat 07/02/17 06:19 CBC WITH AUTO DIFF [HEME] Urgent COMPREHENSIVE METABOLIC PN,CMP [CHEM] Urgent 07/02/17 06:20 INR,PT,PROTHROMBIN TIME [COAG] Urgent PTT,PARTIAL THROMBOPLSTIN TIME [COAG] Urgent - Assessment/Plan Last 24 Hours: My Active Orders 07/02/17 Head wo Cont [CT] Stat 07/02/17 06:19 CBC WITH AUTO DIFF [HEME] Urgent COMPREHENSIVE METABOLIC PN,CMP [CHEM] Urgent 07/02/17 06:20 INR,PT,PROTHROMBIN TIME [COAG] Urgent PTT,PARTIAL THROMBOPLSTIN TIME [COAG] Urgent
== END 2017-07-02 06:25 ==
LOC: JP.ED 05:29
DX: I62.00 Nontraumatic subdural hemorrhage, unspecified (principal); I10 Essential (primary) hypertension; E78.00 Pure hypercholesterolemia, unspecified; K21.9 Gastro-esophageal reflux disease without esophagitis; M19.90 Unspecified osteoarthritis, unspecified site; E11.9 Type 2 diabetes mellitus without complications; Z86.73 Personal history of transient ischemic attack (TIA), and cerebral infarction without residual deficits; Z90.49 Acquired absence of other specified parts of digestive tract; Z90.710 Acquired absence of both cervix and uterus; Z98.890 Other specified postprocedural states; Z79.4 Long term (current) use of insulin; Z79.82 Long term (current) use of aspirin; Z79.899 Other long term (current) drug therapy; Z91.048 Other nonmedicinal substance allergy status
CPT/HCPCS: 36415; 70450; 80053; 85025; 85610; 85730; 99284; 99285-25

== ENCOUNTER 2018-04-01 06:24 | Emergency (ER) | payer MEDICARE, BC ==
--- NOTE | 2018-04-01 07:19 | EDM.PDOC ---
ED HPI GENERAL MEDICAL PROBLEM - General Chief Complaint: General Stated Complaint: MEDICAL / DIRECT TO ER [facility] Time Seen by Provider: 04/01/18 07:09 Source of Information: Reports: Patient, Family, RN Notes Reviewed History Limitations: Reports: No Limitations - History of Present Illness INITIAL COMMENTS - FREE TEXT/NARRATIVE: 78-year-old female presents emergency department day complaint of weakness, she states she fell early this morning and was unable to get up estimates she was on the ground maybe 4-5 hours before they were able to call first responders for assistance. She states she was going to go to the bathroom and then tripped and fell to the ground she is not experiencing any pain anyplace does have a history of cerebrovascular accident 2 and denies any focal neurologic deficit, did admit to abdominal pain but that now has resolved Denies Pain Score (Numeric/FACES): 0 - Related Data Allergies Allergy/AdvReac Type Severity Reaction Status Date / Time Gold Allergy Rash Uncoded 04/01/18 06:39 Home Meds: Home Meds Insulin Glarg,Human.Rec.Analog [Lantus Solostar] 32 unit SQ DAILY 08/21/15 [ History] Lisinopril/Hydrochlorothiazide [Zestoretic 20-12.5 mg Tablet] 2 each PO DAILY [History] Metoprolol Succinate [Toprol XL] 200 mg PO DAILY 08/21/15 [History] amLODIPine [Norvasc] 10 mg PO DAILY 08/21/15 [History] metFORMIN [Glucophage] 1,000 mg PO BIDMEALS 08/21/15 [History] Acetaminophen [Tylenol] 650 mg PO Q4H PRN #100 tablet 01/19/17 [Rx] Aspirin/Dipyridamole [Aggrenox 200-25 MG] 1 cap PO BID #60 cap.er 01/19/17 [Rx] Insulin Aspart [NovoLOG] 1 unit SUBCUT ASDIRECTED #1 pen 01/19/17 [Rx] atorvaSTATin [Lipitor] 40 mg PO BEDTIME #90 tablet 01/19/17 [Rx] Past Medical History HEENT History: Reports: Cataract, Impaired Vision, Other (See Below) Other HEENT History: had a repaired hole in the eardrum by Dr. 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: Musculoskeletal History: Reports: Osteoarthritis, Other (See Below) Other Musculoskeletal History: c/o of L leg and hip pain Neurological History: Reports: CVA Endocrine/Metabolic History: Reports: Diabetes, Type II - Infectious Disease History Infectious Disease History: Reports: Chicken Pox, Measles, Mumps - Past Surgical History Head Surgeries/Procedures: Reports: None HEENT Surgical History: Reports: None, Other (See Below) Other HEENT Surgeries/Procedures: EARDRUM HAD HOLE AND THEY PATCHED IT Cardiovascular Surgical History: Reports: None GI Surgical History: Reports: Appendectomy Female Surgical History: Reports: Hysterectomy Endocrine Surgical History: Reports: None Neurological Surgical History: Reports: None Musculoskeletal Surgical History: Reports: None Dermatological Surgical History: Reports: None Social & Family History - Family History Family Medical History: Noncontributory - Tobacco Use Smoking Status *Q: Never Smoker Second Hand Smoke Exposure: No - Caffeine Use Caffeine Use: Reports: Coffee, Tea - Alcohol Use Days Per Week of Alcohol Use: 0 - Recreational Drug Use Recreational Drug Use: No - Living Situation & Occupation Living situation: Reports: Occupation: Other ED ROS GENERAL - Review of Systems Review Of Systems: See Below Constitutional: Reports: Weakness HEENT: Reports: No Symptoms Respiratory: Reports: No Symptoms Cardiovascular: Reports: No Symptoms GI/Abdominal: Reports: Abdominal Pain. Denies: Nausea, Vomiting : Reports: No Symptoms Musculoskeletal: Reports: No Symptoms Skin: Reports: No Symptoms Neurological: Reports: No Symptoms ED EXAM, GENERAL - Physical Exam Exam: See Below Free Text/Narrative:: General: Female, not in any distress, alert and oriented x3 HEENT: head is atraumatic normocephalic, eyes pupils equal round reactive to light, sclera clear no conjunctivitis appreciated. Ears tympanic membranes clear and davis landmarks and light reflex are present bilaterally canals are clear. Nose no septal deviation, nares are clear, no blood present. Mouth mucosa is moist and pink no erythema or exudate noted in soft palate, tongue is midline uvula is midline, dentures in place. Neck: Supple no thyromegaly no tracheal deviation. Nodes: Cervical nodes subclavicular nodes nontender no palpable lymphadenopathy noted. Lungs: clear to auscultation bilaterally with symmetrical respirations, no adventitious noise appreciated. CV: Regular rate and rhythm S1 and S2 appreciated no murmurs rubs or gallops noted. Abdomen: Soft, nontender, no palpable masses or organomegaly appreciated, no distention no guarding bowel sounds are present, Neuro: Cranial nerves II through XII grossly intact Skin: Warm and dry, intact Extremities: No lower extremity edema appreciated, Course - Vital Signs Last Recorded V/S: Last Vital Signs Temp 98.2 F 04/01/18 06:38 Pulse 60 04/01/18 07:56 Resp 16 04/01/18 07:56 BP 164/74 H 04/01/18 07:56 Pulse Ox 93 L 04/01/18 07:56 Orthostatic Blood Pressure [ 153/70 Standing] Orthostatic Blood Pressure [ 151/71 Sitting] Orthostatic Blood Pressure [ 144/62 Supine] - Orders/Labs/Meds Orders: Active Orders 24 hr Category Date Time Status UA W/MICROSCOPIC [URIN] Urgent Lab 04/01/18 07:20 Ordered Labs: Laboratory Tests 04/01/18 04/01/18 04/01/18 Range/Units 07:20 07:25 07:25 WBC 11.6 H (4.5-11.0) K/uL RBC 4.50 (3.30-5.50) M/uL Hgb 12.9 (12.0-15.0) g/dL Hct 39.0 (36.0-48.0) % MCV 87 (80-98) fL MCH 29 (27-31) pg MCHC 33 (32-36) % Plt Count 268 (150-400) K/uL Neut % (Auto) 77 H (36-66) % Lymph % (Auto) 12 L (24-44) % [place] % (Auto) 9 H (2-6) % Eos % (Auto) 3 (2-4) % Baso % (Auto) 0 (0-1) % Sodium (140-148) mmol/L Potassium (3.6-5.2) mmol/L Chloride (100-108) mmol/L Carbon Dioxide (21-32) mmol/L Anion Gap (5.0-14.0) mmol/L BUN (7-18) mg/dL Creatinine (0.6-1.0) mg/dL Est Cr Clr Drug Dosing mL/min Estimated GFR (MDRD) (>60) Glucose (74-106) mg/dL Lactic Acid (0.4-2.0) mmol/L Calcium (8.5-10.1) mg/dL Total Bilirubin (0.2-1.0) mg/dL AST (15-37) U/L ALT (12-78) U/L Alkaline Phosphatase (46-116) U/L Ammonia (11-32) mmol/L Creatine Kinase 267 H (26-192) U/L Troponin I (0.000-0.056) ng/mL Total Protein (6.4-8.2) g/dL Albumin (3.4-5.0) g/dL Globulin (2.3-3.5) g/dL Albumin/Globulin Ratio (1.2-2.2) Urine Color Yellow Urine Appearance Slightly cloudy Urine pH 6.0 (4.5-8.0) Ur Specific [place] 1.010 (1.008-1.030) Urine Protein Trace (NEGATIVE) mg/dL Urine Glucose (UA) 250 H (NEGATIVE) mg/dL Urine Ketones 15 H (NEGATIVE) mg/dL Urine Occult Blood Moderate (NEGATIVE) Urine Nitrite Negative (NEGATIVE) Urine Bilirubin Negative (NEGATIVE) Urine Urobilinogen Normal (NORMAL) mg/dL Ur Leukocyte Esterase Large (NEGATIVE) Urine RBC 0-5 (0-5) Urine WBC 10-20 H (0-5) Ur Epithelial Cells Few Amorphous Sediment Rare Urine Bacteria Few Urine Mucus Not seen 04/01/18 04/01/18 04/01/18 Range/Units 07:25 07:25 07:25 WBC (4.5-11.0) K/uL RBC (3.30-5.50) M/uL Hgb (12.0-15.0) g/dL Hct (36.0-48.0) % MCV (80-98) fL MCH (27-31) pg MCHC (32-36) % Plt Count (150-400) K/uL Neut % (Auto) (36-66) % Lymph % (Auto) (24-44) % [place] % (Auto) (2-6) % Eos % (Auto) (2-4) % Baso % (Auto) (0-1) % Sodium 133 L (140-148) mmol/L Potassium 3.8 (3.6-5.2) mmol/L Chloride 96 L (100-108) mmol/L Carbon Dioxide 26 (21-32) mmol/L Anion Gap 14.8 H (5.0-14.0) mmol/L BUN 13 (7-18) mg/dL Creatinine 0.9 (0.6-1.0) mg/dL Est Cr Clr Drug Dosing 43.99 mL/min Estimated GFR (MDRD) > 60 (>60) Glucose 226 H (74-106) mg/dL Lactic Acid 5.1 H (0.4-2.0) mmol/L Calcium 8.7 (8.5-10.1) mg/dL Total Bilirubin 0.5 (0.2-1.0) mg/dL AST 35 (15-37) U/L ALT 31 (12-78) U/L Alkaline Phosphatase 87 (46-116) U/L Ammonia 5 L (11-32) mmol/L Creatine Kinase (26-192) U/L Troponin I < 0.017 (0.000-0.056) ng/mL Total Protein 6.9 (6.4-8.2) g/dL Albumin 3.4 (3.4-5.0) g/dL Globulin 3.5 (2.3-3.5) g/dL Albumin/Globulin Ratio 1.0 L (1.2-2.2) Urine Color Urine Appearance Urine pH (4.5-8.0) Ur Specific [place] (1.008-1.030) Urine Protein (NEGATIVE) mg/dL Urine Glucose (UA) (NEGATIVE) mg/dL Urine Ketones (NEGATIVE) mg/dL Urine Occult Blood (NEGATIVE) Urine Nitrite (NEGATIVE) Urine Bilirubin (NEGATIVE) Urine Urobilinogen (NORMAL) mg/dL Ur Leukocyte Esterase (NEGATIVE) Urine RBC (0-5) Urine WBC (0-5) Ur Epithelial Cells Amorphous Sediment Urine Bacteria Urine Mucus Departure - Departure Time of Disposition: 08:38 Disposition: Home, Self-Care 01 Condition: Fair Clinical Impression: Weakness, UTI, Urinary tract infectious disease - Discharge Information Referrals: Tulio Tavarez MD [Primary Care Provider] - Forms: ED Department Discharge Additional Instructions: Take full course of antibiotics, Please followup with your primary care provider in 3-5 days if not better, please call return to the emergency department with worsening of symptoms. - My Orders Last 24 Hours: My Active Orders 04/01/18 07:20 UA W/MICROSCOPIC [URIN] Urgent - Assessment/Plan Last 24 Hours: My Active Orders 04/01/18 07:20 UA W/MICROSCOPIC [URIN] Urgent Plan: Assessment Acuity = acute Site and laterality = fall, weakness, urinary tract infection complicated patient with known history of diabetes mellitus type 2 and history of cerebrovascular accident Etiology = unclear etiology Manifestations = none Location of injury = Home Lab values = WBC elevated 11.6 consistent leukocytosis, sodium low at 133 consistent hyponatremia lactic acid elevated at 5.1 and system lactic acidosis probably related to extended period on the floor CK elevated 267 also elevated from extended period on the floor urinalysis reveals 15 ketones consistent ketonuria and 10-20 WBCs consistent with pyuria cultures pending Plan I did discuss lab work with the family also discussed hospitalization for ongoing weakness they declined would like to try outpatient treatment first before prescription written for Bactrim DS 1 tab by mouth twice a day 7 days follow-up with primary care in 3-5 days for reevaluation This note was dictated using [employer] voice recognition software please call with any questions on syntax or grammar.
[2018-04-01 08:24] VITALS: BP 164/74
== END 2018-04-01 09:01 | disposition home or self-care (01) ==
LOC: JP.ED 06:24
DX: N39.0 Urinary tract infection, site not specified (principal); I10 Essential (primary) hypertension; E11.9 Type 2 diabetes mellitus without complications; Z91.048 Other nonmedicinal substance allergy status; Z79.4 Long term (current) use of insulin; Z79.899 Other long term (current) drug therapy
CPT/HCPCS: 36415; 80053; 81001; 82140; 82550; 83605; 84484; 85025; 99285

== ENCOUNTER 2020-07-01 22:16 | Emergency (ER) | payer MEDICARE, BC ==
[2020-07-01 22:24] VITALS: BP 167/78; PULSE 61
[2020-07-01] MEDS ORDERED: Lidocaine 1% with EPINEPHrine 1:100,000 50 ML MDV INFILT ONE (22:42)
--- NOTE | 2020-07-01 23:00 | EDM.PDOC ---
ED HPI GENERAL MEDICAL PROBLEM - General Chief Complaint: Skin Complaint Stated Complaint: MEDICAL [facility] Time Seen by Provider: 07/01/20 22:30 Source of Information: Reports: Patient, EMS History Limitations: Reports: Intoxication - History of Present Illness INITIAL COMMENTS - FREE TEXT/NARRATIVE: 80-year-old female was at home with her drinking alcohol when she fell backwards hitting the back of her head on the edge of a counter. She sustained a laceration and was bleeding but no loss of consciousness, injury to her neck or back, or other complaints. 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 - Related Data Allergies Allergy/AdvReac Type Severity Reaction Status Date / Time Gold Allergy Rash Uncoded 07/01/20 22:23 Home Meds: Home Meds Insulin Glarg,Human.Rec.Analog [Lantus Solostar] 32 unit SQ DAILY 08/21/15 [History] Lisinopril/Hydrochlorothiazide [Zestoretic 20-12.5 mg Tablet] 2 each PO DAILY 08/21/15 [History] Metoprolol Succinate [Toprol XL] 200 mg PO DAILY 08/21/15 [History] amLODIPine [Norvasc] 10 mg PO DAILY 08/21/15 [History] Insulin Aspart [NovoLOG] 1 unit SUBCUT ASDIRECTED #1 pen 01/19/17 [Rx] atorvaSTATin [Lipitor] 40 mg PO BEDTIME #90 tablet 01/19/17 [Rx] glipiZIDE [Glucotrol XL] 5 mg PO BRK 07/01/20 [History] Past Medical History HEENT History: Reports: Cataract, Impaired Vision, Other (See Below) Other HEENT History: had a repaired hole in the eardrum by Dr. 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: Musculoskeletal History: Reports: Osteoarthritis, Other (See Below) Other Musculoskeletal History: c/o of L leg and hip pain Neurological History: Reports: CVA Psychiatric History: Reports: None Endocrine/Metabolic History: Reports: Diabetes, Type II Hematologic History: Reports: None Immunologic History: Reports: None Oncologic (Cancer) History: Reports: None Dermatologic History: Reports: None - Infectious Disease History Infectious Disease History: Reports: Chicken Pox, Measles, Mumps - Past Surgical History Head Surgeries/Procedures: Reports: None HEENT Surgical History: Reports: None, Other (See Below) Other HEENT Surgeries/Procedures: EARDRUM HAD HOLE AND THEY PATCHED IT Cardiovascular Surgical History: Reports: None GI Surgical History: Reports: Appendectomy Female Surgical History: Reports: Hysterectomy Endocrine Surgical History: Reports: None Neurological Surgical History: Reports: None Musculoskeletal Surgical History: Reports: None Dermatological Surgical History: Reports: None Social & Family History - Family History Family Medical History: Noncontributory - Tobacco Use Smoking Status *Q: Never Smoker - Caffeine Use Caffeine Use: Reports: Coffee Caffeine Use Comment: 3-4 cups per days - Alcohol Use Date of Last Drink: 07/01/20 - Recreational Drug Use Recreational Drug Use: No - Living Situation & Occupation Living situation: Reports: Occupation: Other ED ROS GENERAL - Review of Systems Review Of Systems: See Below Constitutional: Denies: Fever, Chills HEENT: Denies: Vision Change Respiratory: Denies: Shortness of Breath Cardiovascular: Denies: Chest Pain GI/Abdominal: Denies: Nausea, Vomiting Neurological: Denies: Headache ED EXAM, SKIN/RASH Exam: See Below Exam Limited By: No Limitations General Appearance: Alert, No Apparent Distress Head: Other (Patient is a 4 cm, transverse laceration on the occiput of the scalp) Neck: Non-Tender Respiratory/Chest: Wheezing (Few expiratory wheezes are heard) Neurological: Alert, Oriented Psychiatric: Normal Affect, Normal Mood Course - Vital Signs Last Recorded V/S: Last Vital Signs Temp 96.8 F L 07/01/20 22:42 Pulse 61 07/01/20 22:42 Resp 16 07/01/20 22:42 BP 167/78 H 07/01/20 22:42 Pulse Ox 93 L 07/01/20 22:42 - Orders/Labs/Meds Meds: Medications Discontinued Medications Generic Name Dose Route Start Last Admin Trade Name Freq PRN Reason Stop Dose Admin Diphtheria/Tetanus/Acell Pertussis 0.5 ml 07/01/20 23:03 07/01/20 23:13 Boostrix IM 07/01/20 23:04 0.5 ml .ONCE ONE Administration Lidocaine/Epinephrine 30 ml 07/01/20 22:42 07/01/20 23:13 Xylocaine 1% With Epinephrine 1:100,000 INFILT 07/01/20 22:43 30 ml ONETIME ONE Administration - Re-Assessments/Exams Free Text/Narrative Re-Assessment/Exam: 07/01/20 22:58 The wound was anesthetized with 1% lidocaine with epinephrine, cleansed with saline and 9 zander were applied to the laceration with good edge approximation. Topical bacitracin and pressure dressing was applied. This should be worn till tomorrow, then she can wash gently and zander can be removed in 9 days. 07/01/20 23:04 Immunization status was checked and the patient was due for a tetanus booster, so a Tdap booster was ordered. Departure - Departure Time of Disposition: 23:27 Disposition: Home, Self-Care 01 Clinical Impression: Laceration of occipital scalp Qualifiers: Encounter type: initial encounter Qualified Code(s): S01.01XA - Laceration without foreign body of scalp, initial encounter - Discharge Information Instructions: Laceration Care, Adult, [id number] Referrals: Tulio Tavarez MD [Primary Care Provider] - Forms: ED Department Discharge Care Plan Goals: Keep wound clean while healing, and zander can be removed in 9 days next Tuesday. Recheck sooner if concerns of infection or not healing satisfactorily, or you develop other symptoms that you want evaluated. You may gently wash this wound with soap and water starting tomorrow, leave pressure dressing on tonight if possible. Sepsis Event Note (ED) - Evaluation Sepsis Screening Result: No Definite Risk - Focused Exam Vital Signs: Vital Signs Temp Pulse Resp BP Pulse Ox 07/01/20 22:42 96.8 F L 61 16 167/78 H 93 L 07/01/20 22:22 96.8 F L 61 16 167/78 H 93 L
[2020-07-01] MEDS ORDERED: Diphtheria,Pertussis(Acell),Tetanus Vaccine 0.5 ML Syringe IM ONE (23:03)
== END 2020-07-01 23:28 | disposition home or self-care (01) ==
LOC: JP.ED 22:16
DX: S01.01XA Laceration without foreign body of scalp, initial encounter (principal); R06.2 Wheezing; I10 Essential (primary) hypertension; E11.9 Type 2 diabetes mellitus without complications; E78.00 Pure hypercholesterolemia, unspecified; Z79.4 Long term (current) use of insulin; Z23 Encounter for immunization; Z91.09 Other allergy status, other than to drugs and biological substances; Z90.49 Acquired absence of other specified parts of digestive tract; Z90.710 Acquired absence of both cervix and uterus; Z79.899 Other long term (current) drug therapy; W22.8XXA Striking against or struck by other objects, initial encounter; Y92.009 Unspecified place in unspecified non-institutional (private) residence as the place of occurrence of the external cause
CPT/HCPCS: 12002; 90471; 90715; 99282; 99283-25

== ENCOUNTER 2024-01-03 04:34 | Emergency (ER) | payer MEDICARE, BC ==
[2024-01-03 05:40] LABS: BASOPHILS PERCENT AUTO 0.2 % (0.1-1.3); EOSINOPHILS ABSOLUTE AUTO 0.13 K/uL (0.00-0.40); EOSINOPHILS PERCENT AUTO 1.3 % (0.0-5.4); HEMATOCRIT 35.5 % (34.3-46.0); HEMOGLOBIN 11.9 g/dL (11.2-15.5); IMMATURE GRAN ABSOLUTE AUTO 0.06 K/uL (0.00-0.23); IMMATURE GRAN PERCENT AUTO 0.6 % (0.0-0.7); LYMPHOCYTES ABSOLUTE AUTO 1.37 K/uL (0.8-3.3); LYMPHOCYTES PERCENT AUTO 13.6 % (11.4-47.7); MEAN CORPUSCULAR HEMOGLOBIN 28.4 pg (31.6-35.5); MEAN CORPUSCULAR HGB CONC 33.5 g/dL (31.6-35.5); MEAN CORPUSCULAR VOLUME 84.7 fL (81.4-99.0); MONOCYTES ABSOLUTE AUTO 1.08 K/uL (0.20-0.90); MONOCYTES PERCENT AUTO 10.7 % (3.3-12.6); NEUTROPHILS ABSOLUTE AUTO 7.39 K/uL (1.0-7.6); NEUTROPHILS PERCENT AUTO 73.6 % (40.0-78.1); PLATELET COUNT,PLT 326 K/uL (130-375); RED BLOOD CELL COUNT 4.19 M/uL (3.77-5.24); WHITE BLOOD CELL COUNT,WBC 10.1 K/uL (3.2-11.0)
[2024-01-03 05:41] LABS: BASOPHILS ABSOLUTE AUTO 0.02 K/uL (0.00-0.10)
[2024-01-03 06:09] LABS: A/G RATIO 0.8 (1.2-2.2); ALANINE AMINOTRANSFERASE,ALT 18 U/L (12-78); ALBUMIN 3.3 g/dL (3.4-5.0); ALKALINE PHOSPHATASE 66 U/L (46-116); ASPARTATE AMNIOTRANSFERASE,AST 23 U/L (15-37); BILIRUBIN TOTAL 0.3 mg/dL (0.2-1.0); BLOOD UREA NITROGEN,BUN 18 mg/dL (7-18); CALCIUM 9.4 mg/dL (8.5-10.1); CARBON DIOXIDE,CO2 28 mmol/L (21-32); CHLORIDE,CL 93 mmol/L (100-108); CREATININE 0.9 mg/dL (0.6-1.0); EST CRCL DRUG DOSING (CG) 38.77 mL/min; ESTIMATED GFR 64 mL/min (>60); GLUCOSE RANDOM 62 mg/dL (74-106); MAGNESIUM 0.9 mg/dL (1.8-2.4); POTASSIUM,K 3.8 mmol/L (3.6-5.2); PRO B-TYPE NATRIUR PEPT,BNPPRO 1064 pg/mL (5-450); PROTEIN TOTAL,TP 7.4 g/dL (6.4-8.2); SODIUM,NA 130 mmol/L (140-148)
[2024-01-03 06:10] LABS: ANION GAP 12.8 mmol/L (5.0-14.0)
[2024-01-03 06:10] LABS: APPEARANCE,URINE SLIGHTLY CLOUDY (CLEAR); BILIRUBIN,URINE NEGATIVE (NEGATIVE); COLOR,URINE YELLOW (YELLOW); GLUCOSE,URINE NEGATIVE (NEGATIVE); KETONES,URINE NEGATIVE (NEGATIVE); LEUKOCYTE ESTERASE,URINE TRACE (NEGATIVE); NITRITE,URINE NEGATIVE (NEGATIVE); OCCULT BLOOD,URINE NEGATIVE (NEGATIVE); PH,URINE 6.5 (5.0-8.0); PROTEIN,URINE 100 mg/dL (NEGATIVE); UROBILINOGEN,URINE 0.2 EU/dL (0.2-1.0)
[2024-01-03 06:11] LABS: C-REACTIVE PROTEIN < 0.50 mg/dL (<0.50); TROPONIN I HIGH SENSITIVITY 91.7 pg/mL (<=60.3)
[2024-01-03 06:14] LABS: AMORPHOUS SEDIMENT,URINE RARE; BACTERIA,URINE FEW; EPITHELIAL CELLS,URINE NOT SEEN; MUCUS,URINE NOT SEEN; RBC,URINE NOT SEEN (0-5)
[2024-01-03 10:02] VITALS: PULSE 85
[2024-01-03 10:22] VITALS: BP 170/59
== END 2024-01-03 11:03 | disposition home or self-care (01) ==
LOC: JP.ED 04:34
DX: E11.9 Type 2 diabetes mellitus without complications (principal); R79.89 Other specified abnormal findings of blood chemistry; R53.1 Weakness; I10 Essential (primary) hypertension; E78.00 Pure hypercholesterolemia, unspecified; K21.9 Gastro-esophageal reflux disease without esophagitis; Z79.4 Long term (current) use of insulin; Z86.73 Personal history of transient ischemic attack (TIA), and cerebral infarction without residual deficits; Z79.84 Long term (current) use of oral hypoglycemic drugs; Z91.048 Other nonmedicinal substance allergy status; Z90.710 Acquired absence of both cervix and uterus; W19.XXXA Unspecified fall, initial encounter; Y92.009 Unspecified place in unspecified non-institutional (private) residence as the place of occurrence of the external cause
CPT/HCPCS: 36415; 71045; 71045-26; 80053; 81001; 82550; 83735; 83880; 84484; 85025; 86140; 93005; 99284

== ENCOUNTER 2024-07-12 21:44 | Emergency (ER) | payer MEDICARE, BC ==
[2024-07-12 22:59] LABS: BASOPHILS PERCENT AUTO 0.1 % (0.1-1.3); EOSINOPHILS PERCENT AUTO 0.1 % (0.0-5.4); HEMATOCRIT 34.4 % (34.3-46.0); HEMOGLOBIN 11.6 g/dL (11.2-15.5); IMMATURE GRAN ABSOLUTE AUTO 0.08 K/uL (0.00-0.23); IMMATURE GRAN PERCENT AUTO 0.9 % (0.0-0.7); LYMPHOCYTES ABSOLUTE AUTO 1.31 K/uL (0.8-3.3); LYMPHOCYTES PERCENT AUTO 14.3 % (11.4-47.7); MEAN CORPUSCULAR HEMOGLOBIN 28.9 pg (31.6-35.5); MEAN CORPUSCULAR HGB CONC 33.7 g/dL (31.6-35.5); MEAN CORPUSCULAR VOLUME 85.6 fL (81.4-99.0); MONOCYTES ABSOLUTE AUTO 0.78 K/uL (0.20-0.90); MONOCYTES PERCENT AUTO 8.5 % (3.3-12.6); NEUTROPHILS PERCENT AUTO 76.1 % (40.0-78.1); PLATELET COUNT,PLT 390 K/uL (130-375); RED BLOOD CELL COUNT 4.02 M/uL (3.77-5.24); WHITE BLOOD CELL COUNT,WBC 9.2 K/uL (3.2-11.0)
[2024-07-12 23:03] LABS: BASOPHILS ABSOLUTE AUTO 0.01 K/uL (0.00-0.10); EOSINOPHILS ABSOLUTE AUTO 0.01 K/uL (0.00-0.40)
[2024-07-12 23:16] LABS: A/G RATIO 0.7 (1.2-2.2); ALANINE AMINOTRANSFERASE,ALT 15 U/L (12-78); ALKALINE PHOSPHATASE 79 U/L (46-116); ASPARTATE AMNIOTRANSFERASE,AST 23 U/L (15-37); BILIRUBIN TOTAL 0.5 mg/dL (0.2-1.0); BLOOD UREA NITROGEN,BUN 15 mg/dL (7-18); CALCIUM 9.2 mg/dL (8.5-10.1); CARBON DIOXIDE,CO2 26 mmol/L (21-32); CHLORIDE,CL 98 mmol/L (100-108); CREATININE 0.9 mg/dL (0.6-1.0); ESTIMATED GFR 64 mL/min (>60); GLUCOSE RANDOM 72 mg/dL (74-106); POTASSIUM,K 3.6 mmol/L (3.6-5.2); PROTEIN TOTAL,TP 7.6 g/dL (6.4-8.2); SODIUM,NA 135 mmol/L (140-148)
[2024-07-12 23:17] LABS: ANION GAP 14.6 mmol/L (5.0-14.0)
[2024-07-12 23:26] VITALS: BP 148/64; PULSE 72
== END 2024-07-13 00:02 | disposition home or self-care (01) ==
LOC: JP.ED 21:44
DX: E11.649 Type 2 diabetes mellitus with hypoglycemia without coma (principal); I10 Essential (primary) hypertension; E78.00 Pure hypercholesterolemia, unspecified; Z90.49 Acquired absence of other specified parts of digestive tract; Z79.4 Long term (current) use of insulin; Z79.899 Other long term (current) drug therapy; Z91.048 Other nonmedicinal substance allergy status
CPT/HCPCS: 36415; 80053; 85025; 93005; 93010; 99284; 99285

== ENCOUNTER 2024-07-14 09:29 | Emergency (ER) | payer MEDICARE, BC ==
[2024-07-14 09:42] VITALS: BP 161/68; PULSE 70
[2024-07-14 10:26] LABS: APPEARANCE,URINE CLEAR (CLEAR); BILIRUBIN,URINE NEGATIVE (NEGATIVE); COLOR,URINE YELLOW (YELLOW); GLUCOSE,URINE NEGATIVE (NEGATIVE); KETONES,URINE NEGATIVE (NEGATIVE); LEUKOCYTE ESTERASE,URINE SMALL (NEGATIVE); NITRITE,URINE POSITIVE (NEGATIVE); OCCULT BLOOD,URINE TRACE-INTACT (NEGATIVE); PROTEIN,URINE NEGATIVE (NEGATIVE); UROBILINOGEN,URINE 0.2 EU/dL (0.2-1.0)
[2024-07-14 10:38] LABS: BASOPHILS PERCENT AUTO 0.1 % (0.1-1.3); EOSINOPHILS PERCENT AUTO 0.2 % (0.0-5.4); HEMATOCRIT 35.3 % (34.3-46.0); IMMATURE GRAN ABSOLUTE AUTO 0.07 K/uL (0.00-0.23); IMMATURE GRAN PERCENT AUTO 0.6 % (0.0-0.7); LYMPHOCYTES ABSOLUTE AUTO 1.71 K/uL (0.8-3.3); LYMPHOCYTES PERCENT AUTO 13.7 % (11.4-47.7); MEAN CORPUSCULAR HEMOGLOBIN 28.8 pg (31.6-35.5); MEAN CORPUSCULAR VOLUME 84.9 fL (81.4-99.0); MONOCYTES ABSOLUTE AUTO 1.38 K/uL (0.20-0.90); MONOCYTES PERCENT AUTO 11.1 % (3.3-12.6); NEUTROPHILS ABSOLUTE AUTO 9.27 K/uL (1.0-7.6); NEUTROPHILS PERCENT AUTO 74.3 % (40.0-78.1); PLATELET COUNT,PLT 361 K/uL (130-375); RED BLOOD CELL COUNT 4.16 M/uL (3.77-5.24); WHITE BLOOD CELL COUNT,WBC 12.5 K/uL (3.2-11.0)
[2024-07-14 10:39] LABS: BASOPHILS ABSOLUTE AUTO 0.01 K/uL (0.00-0.10); EOSINOPHILS ABSOLUTE AUTO 0.02 K/uL (0.00-0.40)
[2024-07-14 10:39] LABS: AMORPHOUS SEDIMENT,URINE NOT SEEN; BACTERIA,URINE MANY; EPITHELIAL CELLS,URINE NOT SEEN; MUCUS,URINE NOT SEEN; RBC,URINE 0-5 (0-5)
[2024-07-14 11:01] LABS: A/G RATIO 0.6 (1.2-2.2); ALANINE AMINOTRANSFERASE,ALT 17 U/L (12-78); ALBUMIN 2.8 g/dL (3.4-5.0); ALKALINE PHOSPHATASE 77 U/L (46-116); ANION GAP 14.1 mmol/L (5.0-14.0); ASPARTATE AMNIOTRANSFERASE,AST 35 U/L (15-37); BILIRUBIN TOTAL 0.5 mg/dL (0.2-1.0); BLOOD UREA NITROGEN,BUN 17 mg/dL (7-18); CALCIUM 9.4 mg/dL (8.5-10.1); CARBON DIOXIDE,CO2 28 mmol/L (21-32); CHLORIDE,CL 99 mmol/L (100-108); ESTIMATED GFR 56 mL/min (>60); GLUCOSE RANDOM 100 mg/dL (74-106); POTASSIUM,K 3.1 mmol/L (3.6-5.2); PROTEIN TOTAL,TP 7.2 g/dL (6.4-8.2); SODIUM,NA 138 mmol/L (140-148)
[2024-07-14] MEDS: Potassium Chloride 20 MEQ Tab.ER PO ONE (12:20)
== END 2024-07-14 12:29 | disposition home or self-care (01) ==
LOC: JP.ED 09:29
DX: E11.649 Type 2 diabetes mellitus with hypoglycemia without coma (principal); N39.0 Urinary tract infection, site not specified; I10 Essential (primary) hypertension; E78.00 Pure hypercholesterolemia, unspecified; K21.9 Gastro-esophageal reflux disease without esophagitis; Z90.49 Acquired absence of other specified parts of digestive tract; Z90.710 Acquired absence of both cervix and uterus; Z79.84 Long term (current) use of oral hypoglycemic drugs; Z79.899 Other long term (current) drug therapy; Z79.4 Long term (current) use of insulin; Z91.048 Other nonmedicinal substance allergy status
CPT/HCPCS: 36415; 80053; 81001; 83605; 85025; 87086; 87088; 87186; 99285; A9270

== ENCOUNTER 2024-07-30 04:34 | Emergency (ER) | payer MEDICARE, BC ==
[2024-07-30 04:40] VITALS: BP 165/61; PULSE 65
[2024-07-30 05:21] LABS: BASOPHILS PERCENT AUTO 0.1 % (0.1-1.3); EOSINOPHILS ABSOLUTE AUTO 0.11 K/uL (0.00-0.40); EOSINOPHILS PERCENT AUTO 0.7 % (0.0-5.4); HEMATOCRIT 33.9 % (34.3-46.0); HEMOGLOBIN 11.7 g/dL (11.2-15.5); IMMATURE GRAN ABSOLUTE AUTO 0.13 K/uL (0.00-0.23); IMMATURE GRAN PERCENT AUTO 0.9 % (0.0-0.7); LYMPHOCYTES ABSOLUTE AUTO 1.44 K/uL (0.8-3.3); LYMPHOCYTES PERCENT AUTO 9.6 % (11.4-47.7); MEAN CORPUSCULAR HGB CONC 34.5 g/dL (31.6-35.5); MEAN CORPUSCULAR VOLUME 84.1 fL (81.4-99.0); MONOCYTES ABSOLUTE AUTO 1.29 K/uL (0.20-0.90); MONOCYTES PERCENT AUTO 8.6 % (3.3-12.6); NEUTROPHILS ABSOLUTE AUTO 11.96 K/uL (1.0-7.6); NEUTROPHILS PERCENT AUTO 80.1 % (40.0-78.1); PLATELET COUNT,PLT 463 K/uL (130-375); RED BLOOD CELL COUNT 4.03 M/uL (3.77-5.24)
[2024-07-30 05:22] LABS: BASOPHILS ABSOLUTE AUTO 0.02 K/uL (0.00-0.10)
[2024-07-30 05:25] LABS: ANION GAP 15.9 mmol/L (5.0-14.0); CALCIUM 8.8 mg/dL (8.5-10.1); CREATININE 1.1 mg/dL (0.6-1.0); EST CRCL DRUG DOSING (CG) 31.19 mL/min; POTASSIUM,K 3.9 mmol/L (3.6-5.2)
[2024-07-30 06:19] LABS: HEMOGLOBIN A1C 5.5 % (4.5-6.2)
== END 2024-07-30 07:02 | disposition home or self-care (01) ==
LOC: JP.ED 04:34
DX: E11.65 Type 2 diabetes mellitus with hyperglycemia (principal); E78.00 Pure hypercholesterolemia, unspecified; I10 Essential (primary) hypertension; K21.9 Gastro-esophageal reflux disease without esophagitis; Z86.73 Personal history of transient ischemic attack (TIA), and cerebral infarction without residual deficits; Z90.49 Acquired absence of other specified parts of digestive tract; Z90.710 Acquired absence of both cervix and uterus; Z79.82 Long term (current) use of aspirin; Z79.4 Long term (current) use of insulin; Z79.84 Long term (current) use of oral hypoglycemic drugs; Z79.899 Other long term (current) drug therapy; Z91.048 Other nonmedicinal substance allergy status
CPT/HCPCS: 36415; 80048; 82947; 83036; 85025; 99285

== ENCOUNTER 2024-08-29 17:38 | Inpatient (IN) | payer MEDICARE, BC ==
[2024-08-29 18:28] LABS: BASOPHILS ABSOLUTE AUTO 0.03 K/uL (0.00-0.10); BASOPHILS PERCENT AUTO 0.1 % (0.1-1.3); HEMATOCRIT 29.7 % (34.3-46.0); HEMOGLOBIN 10.7 g/dL (11.2-15.5); IMMATURE GRAN ABSOLUTE AUTO 0.22 K/uL (0.00-0.23); LYMPHOCYTES ABSOLUTE AUTO 1.25 K/uL (0.8-3.3); LYMPHOCYTES PERCENT AUTO 5.5 % (11.4-47.7); MEAN CORPUSCULAR HEMOGLOBIN 29.4 pg (31.6-35.5); MEAN CORPUSCULAR VOLUME 81.6 fL (81.4-99.0); MONOCYTES ABSOLUTE AUTO 1.71 K/uL (0.20-0.90); MONOCYTES PERCENT AUTO 7.5 % (3.3-12.6); NEUTROPHILS ABSOLUTE AUTO 19.61 K/uL (1.0-7.6); NEUTROPHILS PERCENT AUTO 85.9 % (40.0-78.1); PLATELET COUNT,PLT 453 K/uL (130-375); RED BLOOD CELL COUNT 3.64 M/uL (3.77-5.24); WHITE BLOOD CELL COUNT,WBC 22.8 K/uL (3.2-11.0)
[2024-08-29 18:31] LABS: EOSINOPHILS ABSOLUTE AUTO 0.01 K/uL (0.00-0.40)
[2024-08-29 18:50] LABS: BASE EXCESS ARTERIAL 4.6 mm/L; BICARBONATE,ARTERIAL 26.6 mmol/L (22.0-26.0); CARBOXYHEMOGLOBIN 2.6 % (0.0-1.6); METHEMOGLOBIN 0.8 %; O2 SATURATION ARTERIAL 98.2 % (95.0-98.0); OXYHEMOGLOBIN 94.9 %; PO2 ARTERIAL 97.7 mmHg (75.0-100.0); TOTAL HEMOGLOBIN 10.9 g/dL (12.0-16.0)
[2024-08-29 18:52] LABS: A/G RATIO 0.5 (1.2-2.2); ALANINE AMINOTRANSFERASE,ALT 22 U/L (12-78); ALKALINE PHOSPHATASE 132 U/L (46-116); ANION GAP 9.4 mmol/L (5.0-14.0); ASPARTATE AMNIOTRANSFERASE,AST 30 U/L (15-37); BILIRUBIN TOTAL 0.4 mg/dL (0.2-1.0); BLOOD UREA NITROGEN,BUN 12 mg/dL (7-18); C-REACTIVE PROTEIN 2.09 mg/dL (<0.50); CALCIUM 8.1 mg/dL (8.5-10.1); CARBON DIOXIDE,CO2 28 mmol/L (21-32); CHLORIDE,CL 92 mmol/L (100-108); CREATININE 0.7 mg/dL (0.6-1.0); EST CRCL DRUG DOSING (CG) 49.01 mL/min; ESTIMATED GFR 86 mL/min (>60); GLUCOSE RANDOM 121 mg/dL (74-106); MAGNESIUM 0.8 mg/dL (1.8-2.4); POTASSIUM,K 3.4 mmol/L (3.6-5.2); PROTEIN TOTAL,TP 5.7 g/dL (6.4-8.2); SODIUM,NA 126 mmol/L (140-148)
[2024-08-29 18:57] LABS: LACTIC ACID 1.3 mmol/L (0.4-2.0)
[2024-08-29] MEDS: cefTRIAXone 2 GM in Sodium Chloride 0.9% 50 ML IV ONE (18:58)
[2024-08-29] MEDS: Sodium Chloride 0.9% 1,000 ML IV ONE (18:58)
[2024-08-29 19:07] LABS: APPEARANCE,URINE CLEAR (CLEAR); BILIRUBIN,URINE NEGATIVE (NEGATIVE); COLOR,URINE YELLOW (YELLOW); GLUCOSE,URINE NEGATIVE (NEGATIVE); KETONES,URINE NEGATIVE (NEGATIVE); LEUKOCYTE ESTERASE,URINE TRACE (NEGATIVE); NITRITE,URINE POSITIVE (NEGATIVE); OCCULT BLOOD,URINE NEGATIVE (NEGATIVE); PH,URINE 5.5 (5.0-8.0); PROTEIN,URINE NEGATIVE (NEGATIVE); UROBILINOGEN,URINE 0.2 EU/dL (0.2-1.0)
[2024-08-29 19:11] LABS: CORONAVIRUS COVID-19 NAA NEGATIVE (NEGATIVE); INFLUENZA A NAA NEGATIVE (NEGATIVE); INFLUENZA B NAA NEGATIVE (NEGATIVE); RESPIRATORY SYNCYTIAL VIR NAA NEGATIVE (NEGATIVE)
[2024-08-29 19:17] LABS: AMORPHOUS SEDIMENT,URINE NOT SEEN; BACTERIA,URINE MANY; EPITHELIAL CELLS,URINE RARE; MUCUS,URINE NOT SEEN; RBC,URINE 0-5 (0-5)
[2024-08-29] MEDS: Magnesium Oxide 400 MG Tab PO ONE (20:54)
[2024-08-29] MEDS ORDERED: Ondansetron 4 MG/2 ML SDV IV PRN (22:06)
[2024-08-29] MEDS ORDERED: Melatonin 3 MG Tab PO PRN (22:06)
[2024-08-29] MEDS ORDERED: Ondansetron 4 MG Tab.DIS PO PRN (22:06)
[2024-08-29] MEDS ORDERED: Sennosides/Docusate Sodium 50-8.6 MG Tab PO PRN (22:06)
[2024-08-29] MEDS: Sodium Chloride 0.9% 1,000 ML IV SCH (22:28)
[2024-08-29] MEDS: Enoxaparin 40 MG/0.4 ML Syringe SUBCUT SCH (22:33)
[2024-08-29] MEDS: Lactobacillus Rhamnosus GG (Probiotic) Cap PO SCH (22:33)
[2024-08-29] MEDS ORDERED: 50% Dextrose in Water 50 ML Syringe IVPUSH PRN (23:01)
[2024-08-29] MEDS ORDERED: Glucagon,Human Recombinant 1 MG Vial IM PRN (23:01)
[2024-08-30 05:27] LABS: HEMATOCRIT 28.4 % (34.3-46.0); MEAN CORPUSCULAR HEMOGLOBIN 28.7 pg (31.6-35.5); MEAN CORPUSCULAR HGB CONC 35.2 g/dL (31.6-35.5); MEAN CORPUSCULAR VOLUME 81.4 fL (81.4-99.0); RED BLOOD CELL COUNT 3.49 M/uL (3.77-5.24); WHITE BLOOD CELL COUNT,WBC 20.6 K/uL (3.2-11.0)
[2024-08-30] MEDS: Nystatin Topical Powder 15 GM Bottle TOP SCH ×2 (05:40→09:49)
[2024-08-30 05:45] LABS: ANION GAP 11.2 mmol/L (5.0-14.0); CALCIUM 7.7 mg/dL (8.5-10.1); CREATININE 0.6 mg/dL (0.6-1.0); EST CRCL DRUG DOSING (CG) 57.17 mL/min; MAGNESIUM 0.9 mg/dL (1.8-2.4); POTASSIUM,K 3.2 mmol/L (3.6-5.2)
[2024-08-30] MEDS: Pantoprazole 40 MG Tab.CR PO SCH (08:24)
[2024-08-30] MEDS: metFORMIN 500 MG Tab PO SCH (08:24)
[2024-08-30] MEDS: Oxybutynin 5 MG Tab PO SCH (08:26)
[2024-08-30] MEDS: amLODIPine 5 MG Tab PO SCH (08:28)
[2024-08-30] MEDS: rOPINIRole 0.5 MG Tab PO SCH (08:30)
[2024-08-30] MEDS: Magnesium Oxide 400 MG Tab PO SCH (08:30)
[2024-08-30] MEDS: Metoprolol Succinate 50 MG Tab.ER PO SCH (08:31)
[2024-08-30] MEDS: Lisinopril 20 MG Tab PO SCH (08:35)
[2024-08-30] MEDS: Hydrochlorothiazide 25 MG Tab PO SCH (08:35)
[2024-08-30] MEDS: Insulin Glargine,Human Rec. Analog 100 Units/ML 3 ML Pen SUBCUT SCH (08:37)
[2024-08-30] MEDS ORDERED: Non-Formulary Medication 1 Each (Oxybutynin [Oxybutynin Er] 5 MG Tab.Er) PO SCH (09:00)
[2024-08-30] MEDS ORDERED: MAGNESIUM GLUCONATE 30 MG PO SCH (09:00)
[2024-08-30] MEDS ORDERED: Non-Formulary Medication 1 Each (Lisinopril/Hydrochlorothiazide [Zestoretic 20-12.5 Mg Tab PO SCH (09:00)
[2024-08-30] MEDS: Acetaminophen 325 MG Tab PO PRN (09:45)
[2024-08-30] MEDS: Potassium Chloride 20 MEQ Tab.ER PO ONE ×2 (09:46→17:27)
[2024-08-30] MEDS: Magnesium Sulfate/Water Premix 2 GM in Premix Bag 1 BAG IV SCH (09:49)
[2024-08-30] MEDS: Phenazopyridine 95 MG Tab PO SCH (13:38)
[2024-08-30] MEDS: oxyCODONE 5 MG Tab PO PRN (15:49)
[2024-08-30] MEDS: cefTRIAXone 1 GM in Sodium Chloride 0.9% 50 ML IV SCH (17:34)
[2024-08-30] MEDS: atorvaSTATin 20 MG Tab PO SCH (20:35)
[2024-08-31 05:20] LABS: HEMATOCRIT 25.1 % (34.3-46.0); HEMOGLOBIN 8.8 g/dL (11.2-15.5); MEAN CORPUSCULAR HEMOGLOBIN 28.8 pg (31.6-35.5); MEAN CORPUSCULAR HGB CONC 35.1 g/dL (31.6-35.5); RED BLOOD CELL COUNT 3.06 M/uL (3.77-5.24); WHITE BLOOD CELL COUNT,WBC 13.3 K/uL (3.2-11.0)
[2024-08-31 05:38] LABS: CALCIUM 7.8 mg/dL (8.5-10.1); CREATININE 0.7 mg/dL (0.6-1.0); EST CRCL DRUG DOSING (CG) 48.58 mL/min; MAGNESIUM 2.6 mg/dL (1.8-2.4); POTASSIUM,K 3.9 mmol/L (3.6-5.2)
[2024-08-31 05:39] LABS: ANION GAP 7.9 mmol/L (5.0-14.0)
[2024-09-01 05:48] LABS: HEMOGLOBIN 9.2 g/dL (11.2-15.5); MEAN CORPUSCULAR HEMOGLOBIN 29.4 pg (31.6-35.5); MEAN CORPUSCULAR HGB CONC 35.4 g/dL (31.6-35.5); MEAN CORPUSCULAR VOLUME 83.1 fL (81.4-99.0); RED BLOOD CELL COUNT 3.13 M/uL (3.77-5.24); WHITE BLOOD CELL COUNT,WBC 14.4 K/uL (3.2-11.0)
[2024-09-01 06:12] LABS: CALCIUM 7.9 mg/dL (8.5-10.1); CREATININE 0.7 mg/dL (0.6-1.0); EST CRCL DRUG DOSING (CG) 48.58 mL/min; MAGNESIUM 1.8 mg/dL (1.8-2.4); POTASSIUM,K 4.2 mmol/L (3.6-5.2)
[2024-09-01 06:14] LABS: ANION GAP 8.2 mmol/L (5.0-14.0)
[2024-09-01] MEDS: Cephalexin 250 MG Cap PO SCH (12:41)
[2024-09-01] MEDS: metFORMIN 500 MG Tab PO SCH (16:04)
[2024-09-02 05:54] LABS: HEMATOCRIT 28.7 % (34.3-46.0); HEMOGLOBIN 10.2 g/dL (11.2-15.5); MEAN CORPUSCULAR HEMOGLOBIN 29.5 pg (31.6-35.5); MEAN CORPUSCULAR HGB CONC 35.5 g/dL (31.6-35.5); MEAN CORPUSCULAR VOLUME 82.9 fL (81.4-99.0); RED BLOOD CELL COUNT 3.46 M/uL (3.77-5.24); WHITE BLOOD CELL COUNT,WBC 15.1 K/uL (3.2-11.0)
[2024-09-02 06:05] LABS: CALCIUM 8.4 mg/dL (8.5-10.1); CREATININE 0.7 mg/dL (0.6-1.0); EST CRCL DRUG DOSING (CG) 48.58 mL/min; POTASSIUM,K 3.9 mmol/L (3.6-5.2)
[2024-09-02 06:08] LABS: ANION GAP 10.9 mmol/L (5.0-14.0)
[2024-09-02] MEDS: Loperamide 2 MG Cap PO PRN (10:51)
[2024-09-03 05:59] VITALS: BP 118/56; PULSE 64
[2024-09-03 06:07] LABS: HEMATOCRIT 25.4 % (34.3-46.0); MEAN CORPUSCULAR HEMOGLOBIN 29.4 pg (31.6-35.5); MEAN CORPUSCULAR HGB CONC 35.4 g/dL (31.6-35.5); RED BLOOD CELL COUNT 3.06 M/uL (3.77-5.24); WHITE BLOOD CELL COUNT,WBC 14.1 K/uL (3.2-11.0)
[2024-09-03 06:21] LABS: ANION GAP 8.2 mmol/L (5.0-14.0); CALCIUM 8.2 mg/dL (8.5-10.1); CREATININE 0.6 mg/dL (0.6-1.0); EST CRCL DRUG DOSING (CG) 56.68 mL/min; POTASSIUM,K 4.2 mmol/L (3.6-5.2)
[2024-09-03] MEDS: Insulin Glargine,Human Rec. Analog 100 Units/ML 3 ML Pen SUBCUT SCH (09:50)
== END 2024-09-03 10:00 | DRG 690 ==
LOC: JP.ED 17:38 → JP.ICU 20:50
PROVIDERS: ADMIT Registered Nurse; ATTEND Hospitalist
PROC: 4A033R1 Measurement of Arterial Saturation, Peripheral, Percutaneous Approach (ICD-10-PCS; principal; 2024-08-29)
DX: N39.0 Urinary tract infection, site not specified (principal); E87.1 Hypo-osmolality and hyponatremia; E83.42 Hypomagnesemia; H26.9 Unspecified cataract; H54.7 Unspecified visual loss; E78.00 Pure hypercholesterolemia, unspecified; E11.9 Type 2 diabetes mellitus without complications; Z91.09 Other allergy status, other than to drugs and biological substances; Z79.82 Long term (current) use of aspirin; I10 Essential (primary) hypertension; K21.9 Gastro-esophageal reflux disease without esophagitis; M19.90 Unspecified osteoarthritis, unspecified site; F15.90 Other stimulant use, unspecified, uncomplicated; Z66 Do not resuscitate; B96.29 Other Escherichia coli [E. coli] as the cause of diseases classified elsewhere; R19.7 Diarrhea, unspecified; R29.6 Repeated falls; R32 Unspecified urinary incontinence; E87.6 Hypokalemia; E11.65 Type 2 diabetes mellitus with hyperglycemia; Z91.048 Other nonmedicinal substance allergy status; Z79.4 Long term (current) use of insulin; Z79.02 Long term (current) use of antithrombotics/antiplatelets; Z79.899 Other long term (current) drug therapy; Z86.73 Personal history of transient ischemic attack (TIA), and cerebral infarction without residual deficits; Z90.49 Acquired absence of other specified parts of digestive tract; Z90.710 Acquired absence of both cervix and uterus
CPT/HCPCS: 0241U; 36415; 36600; 70450; 80048; 80053; 81001; 82803; 82947; 83605; 83735; 85025; 85027; 86140; 87086; 87088; 87186; 87493; 96365; 96366; 97110; 97161; 97165; 97530; 99222; 99232; 99238; 99285; A9270-GY; J0696; J1650; J1815-GY; J3475; J3490; J7030

== ENCOUNTER 2024-09-06 22:36 | Emergency (ER) | payer MEDICARE, BC ==
[2024-09-06 23:05] LABS: BASOPHILS PERCENT AUTO 0.1 % (0.1-1.3); EOSINOPHILS ABSOLUTE AUTO 0.05 K/uL (0.00-0.40); EOSINOPHILS PERCENT AUTO 0.2 % (0.0-5.4); HEMATOCRIT 28.1 % (34.3-46.0); HEMOGLOBIN 9.9 g/dL (11.2-15.5); IMMATURE GRAN PERCENT AUTO 0.8 % (0.0-0.7); LYMPHOCYTES ABSOLUTE AUTO 1.38 K/uL (0.8-3.3); LYMPHOCYTES PERCENT AUTO 5.7 % (11.4-47.7); MEAN CORPUSCULAR HEMOGLOBIN 29.2 pg (31.6-35.5); MEAN CORPUSCULAR HGB CONC 35.2 g/dL (31.6-35.5); MEAN CORPUSCULAR VOLUME 82.9 fL (81.4-99.0); MONOCYTES ABSOLUTE AUTO 2.46 K/uL (0.20-0.90); MONOCYTES PERCENT AUTO 10.2 % (3.3-12.6); NEUTROPHILS ABSOLUTE AUTO 19.94 K/uL (1.0-7.6); PLATELET COUNT,PLT 369 K/uL (130-375); RED BLOOD CELL COUNT 3.39 M/uL (3.77-5.24); WHITE BLOOD CELL COUNT,WBC 24.1 K/uL (3.2-11.0)
[2024-09-06 23:14] LABS: BASOPHILS ABSOLUTE AUTO 0.02 K/uL (0.00-0.10)
[2024-09-06 23:26] LABS: A/G RATIO 0.6 (1.2-2.2); ALANINE AMINOTRANSFERASE,ALT 54 U/L (12-78); ALBUMIN 2.2 g/dL (3.4-5.0); ALKALINE PHOSPHATASE 109 U/L (46-116); ASPARTATE AMNIOTRANSFERASE,AST 118 U/L (15-37); BILIRUBIN TOTAL 0.7 mg/dL (0.2-1.0); BLOOD UREA NITROGEN,BUN 14 mg/dL (7-18); CALCIUM 8.6 mg/dL (8.5-10.1); CARBON DIOXIDE,CO2 29 mmol/L (21-32); CHLORIDE,CL 87 mmol/L (100-108); CREATININE 0.9 mg/dL (0.6-1.0); ESTIMATED GFR 64 mL/min (>60); GLUCOSE RANDOM 89 mg/dL (74-106); POTASSIUM,K 3.9 mmol/L (3.6-5.2); PROTEIN TOTAL,TP 6.1 g/dL (6.4-8.2); SODIUM,NA 122 mmol/L (140-148)
[2024-09-06 23:32] LABS: ANION GAP 9.9 mmol/L (5.0-14.0)
[2024-09-07 00:08] LABS: AMORPHOUS SEDIMENT,URINE NOT SEEN; APPEARANCE,URINE CLEAR (CLEAR); BACTERIA,URINE RARE; COLOR,URINE YELLOW (YELLOW); EPITHELIAL CELLS,URINE FEW; MUCUS,URINE NOT SEEN; RBC,URINE 0-5 (0-5); WBC,URINE 0-5 (0-5)
[2024-09-07 00:09] LABS: BILIRUBIN,URINE NEGATIVE (NEGATIVE); GLUCOSE,URINE NORMAL (NEGATIVE); KETONES,URINE NEGATIVE (NEGATIVE); LEUKOCYTE ESTERASE,URINE NEGATIVE (NEGATIVE); NITRITE,URINE NEGATIVE (NEGATIVE); OCCULT BLOOD,URINE NEGATIVE (NEGATIVE); PROTEIN,URINE 30 mg/dL (NEGATIVE); UROBILINOGEN,URINE 0.2 EU/dL (0.2-1.0)
[2024-09-07 01:34] VITALS: BP 125/47; PULSE 58
== END 2024-09-07 09:25 ==
LOC: JP.ED 22:36
DX: E87.1 Hypo-osmolality and hyponatremia (principal); R53.1 Weakness; I10 Essential (primary) hypertension; E78.00 Pure hypercholesterolemia, unspecified; K21.9 Gastro-esophageal reflux disease without esophagitis; E11.9 Type 2 diabetes mellitus without complications; Z86.16 Personal history of COVID-19; Z86.73 Personal history of transient ischemic attack (TIA), and cerebral infarction without residual deficits; Z79.899 Other long term (current) drug therapy; Z79.84 Long term (current) use of oral hypoglycemic drugs; Z91.048 Other nonmedicinal substance allergy status
CPT/HCPCS: 36415; 80053; 81001; 85025; 99285